=== PATIENT | female | born 1970 | race Caucasian/White ===

== ENCOUNTER 2019-12-29 05:50 | Emergency (ER) | payer OTHER, SELFPAY ==
--- NOTE | ~2019-12-29 | CT_ITS ---
EXAMINATION: CT abdomen pelvis w con DATE: 12/29/2019 07:10 INDICATION: Abdominal pain. History of pancreatitis. TECHNIQUE: Computed tomography (CT) of the abdomen and pelvis was performed with 100 cc Omnipaque 350 intravenous contrast. Automated exposure control and iterative reconstruction technique were employe d. Exam dose: 968.75 mGy-cm total exam DLP. COMPARISON: 10/13/2018 right upper quadrant abdominal ultrasound 10/14/2018 MRI abdomen FINDINGS: The lung bases are clear. Normal heart size. No pericardial or pleural effusion. The liver, gallbladder, bile ducts, pancreas, pancreatic duct, spleen and adrenal glands are unremark able. There is mild bilateral renal scarring and/or persistent lobation. No renal mass lesion or urin susie tract obstruction is evident. There is a small nonobstructing lower pole left renal calculus. Normal caliber of the abdominal aorta. No intraperitoneal or retroperitoneal or pelvic mass lesion or adenopathy or ascites. There is some fluid distended small bowel segments and scattered small bowel air-fluid levels, which may be due to adynamic ileus or enteritis. There are scattered diverticula of left and right colon; n o CT evidence of diverticulitis. No bowel obstruction, bowel wall thickening, pneumatosis or intraper itoneal free air is evident. There is a trace amount of air within the urinary bladder. Recommend clinical correlation to exclude cystitis. There is no urinary bladder wall thickening or pericystic fluid or inflammation. The uterus and adnexal areas are unremarkable. No pericystic inflammatory process is evident. Diffuse idiopathic skeletal hyperostosis of the thoracic spine. Moderate degenerative disc disease an d prominent spurring at L2-3. No suspicious osteolytic or osteoblastic lesions are noted. IMPRESSION: Nondilated fluid containing small bowel segments and occasional air-fluid levels, sugges ting mild adynamic ileus or enteritis Diverticulosis of the colon; no CT evidence of diverticulitis Reviewed, dictated and finalized at [facility] Reviewed, dictated and finalized at [facility]. IMPRESSION: Nondilated fluid containing small bowel segments and occasional ai r-fluid levels, suggesting mild adynamic ileus or enteritis Diverticulosis of the colon; no CT evidence of diverticulitis
[2019-12-29 05:51] VITALS: BP 189/98; PULSE 94; RESP 16; TEMP 36.6; O2SAT 100
--- NOTE | 2019-12-29 06:02 | ED.ABDPAIN ---
HPI - Abdominal Pain General Chief Complaint: Abdominal Pain <Savannah White MD - Last Filed: 12/29/19 07:52> Stated Complaint: abd pain <Savannah White MD - Last Filed: 12/29/19 07:52> Time Seen by Provider: 12/29/19 06:02 <Savannah White MD - Last Filed: 12/29/19 07:52> Source: patient <Savannah White MD - Last Filed: 12/29/19 07:52> Mode of arrival: wheelchair <Savannah White MD - Last Filed: 12/29/19 07:52> Limitations: no limitations <Savannah White MD - Last Filed: 12/29/19 07:52> History of Present Illness HPI narrative: Patient is a 49-year-old female with a history of diabetes, pancreatitis who presents for evaluation of upper abdominal pain. Patient reports a 2-month history of intermittent, severe, cramping upper abdominal pain. There is associated with nausea, vomiting. Patient denies fever, chills, intermittently she has had diarrhea. She denies flank pain. Patient states she is working with her physician Dr. Driver, to investigate possible ulcer, and has follow-up with Dr. Sanabria, gastroenterology in [place] for February. Patient states that none of the remedies they have tried including antacids have alleviated the pain. Patient reports mild abdominal bloating. She does have a history of an appendectomy. <Savannah White MD - Last Filed: 12/29/19 07:52> Related Data Home Medications: Home Medications Medication Instructions Recorded Confirmed diazepam 2.5 mg PO Q6H PRN 12/29/19 12/29/19 lovastatin 20 mg PO DAILY 12/29/19 12/29/19 pantoprazole 40 mg PO DAILY 12/29/19 12/29/19 <Savannah White MD - Last Filed: 12/29/19 07:52> Allergies/Adverse Reactions: Allergies Allergy/AdvReac Type Severity Reaction Status Date / Time No Known Allergies Allergy Verified 12/29/19 06:00 <Savannah White MD - Last Filed: 12/29/19 07:52> Review of Systems Review of Systems: Narrative: CONSTITUTIONAL: Denies fever, chills, or sweats. EYES: Denies visual changes, redness, or discharge. ENT: Denies rhinorrhea, congestion, sore throat, or otalgia. CARDIOVASCULAR: Denies chest pain, palpitations, or edema. RESPIRATORY: Denies cough or dyspnea. GASTROINTESTINAL: Reports abdominal pain, nausea and vomiting GENITOURINARY: Denies dysuria or hematuria. SKIN: Denies rash or itching. MUSCULOSKELETAL: Denies back pain, joint pain, or myalgia. NEUROLOGIC: Denies headache, numbness, or weakness. PS <Savannah White MD - Last Filed: 12/29/19 07:52> PMFSH Past Medical History Medical History: Medical History (Updated 12/29/19 @ 07:40 by Savannah White MD) Anxiety Diabetes Hyperlipidemia Hypertension Pancreatitis <Savannah White MD - Last Filed: 12/29/19 07:52> Social History Social History: Social History (Updated 12/29/19 @ 06:03 by Savannah White MD) Smoking status: Never smoker Alcohol intake: never Substance use: never Gender identity (if verbalized by the patient): Female <Savannah White MD - Last Filed: 12/29/19 07:52> Exam Narrative: Exam Narrative: GENERAL: Awake, alert, sitting on the side of the bed, laying on the bed with her elbows, uncomfortable appearing HEAD: Normocephalic, atraumatic. EYES: PERRLA and EOMI. ENT: Nares clear, no rhinorrhea or epistaxis. Mucous membranes moist. NECK: Supple. CHEST: No respiratory distress, breathing even and non labored HEART: Regular rate, sinus rhythm ABDOMEN:Non distended, tender to palpation in epigastrium and right upper quadrant with guarding, no rebound, nonrigid EXTREMITIES: Normal range of motion. No edema. SKIN: Warm, dry, no rash. NEURO:No focal deficits. Alert and oriented x3 <Savannah White MD - Last Filed: 12/29/19 07:52> Course Reevaluation(s) Reevaluation #1: I accepted care from Dr. White. Patient reports she is still have severe right upper abdominal pain radiating to her back. She is awaiting CT, and I will order m
[2019-12-29] MEDS: ONDANSETRON INJ 4 MG/2 ML VIAL IV PUSH (06:21)
[2019-12-29] MEDS: MORPHINE SULFATE 4 MG/ML INJ IV PUSH (06:21)
[2019-12-29] MEDS: SODIUM CHLORIDE 0.9% IV 1,000 ML 999 ML IV CONT (06:21)
[2019-12-29] MEDS: FAMOTIDINE 20 MG/2 ML VIAL IV PUSH (06:21)
[2019-12-29 06:26] LABS: Basophils Absolute Auto 0.1 K/mm3 (0.0-0.1); Basophils Percent Auto 1.5 % (0.2-1.2); Eosinophils Absolute Auto 0.3 K/mm3 (0-0.3); Eosinophils Percent Auto 3.6 % (0-4.4); Hemoglobin 13.8 g/dL (12.0-15.0); Immature Granulocyte Absolute 0.03 K/mm3 (0.00-0.031); Immature Granulocyte Percent A 0.3 % (0-0.5); Lymphocytes Absolute Auto 2.43 K/mm3 (0.9-3.2); Lymphocytes Percent Auto 28.2 % (18.3-44.2); Mean Corpuscular HGB Conc 33.7 g/dl (32-36); Mean Corpuscular Hemoglobin 28.3 pg (26-34); Mean Platelet Volume 10.4 fl (7.4-10.4); Monocytes Absolute Auto 0.8 K/mm3 (0.1-0.6); Monocytes Percent Auto 9.4 % (2.6-8.5); Neutrophils Absolute Auto 4.9 K/mm3 (1.3-6.7); Platelet Count Result 331 k/mm3 (150-375); Red Blood Count 4.88 M/mm3 (4.2-5.4); Red Cell Distribution Width 12.8 % (11.5-14.5); White Blood Count 8.6 K/mm3 (4.5-10.0)
[2019-12-29 06:40] LABS: Add Urine Microscopic? YES; Appearance Urine Clear (Clear); Bilirubin Urine Negative (Negative); Blood Urine Negative (Negative); Color Urine Yellow (Yellow); Glucose Urine UA Negative (Negative); Ketones Urine Negative (Negative); Leukocyte Esterase Ur Trace LEU/UL (Negative); Nitrate Urine Negative (Negative); Protein Urine Negative (Negative); RBC Urine 0-2 /hpf (0-2); Specific Grav Ur 1.023 (1.001-1.035); Squamous Epithelial Cell Urine Many /hpf (Few); Urobilinogen Urine Negative mg/dL (<2.0)
[2019-12-29 06:43] VITALS: BP 178/91; PULSE 86; RESP 20; O2SAT 100
[2019-12-29 06:46] LABS: Alanine Aminotransferase 16 U/L (4-35); Albumin Level 4.1 g/dL (3.5-5.1); Alkaline Phosphatase 76 U/L (38-126); Anion Gap 12.3 mmol/L (7-16); Aspartate Amino Transferase 26 U/L (14-36); Bilirubin,Total 0.4 mg/dL (0.2-1.3); Blood Urea Nitrogen 24 mg/dL (7-17); Calcium 9.2 mg/dL (8.4-10.2); Carbon Dioxide 27 mmol/L (22-30); Chloride 101 mmol/L (98-107); Estimated CRCL calculation 98 ml/min; Estimated Glomerular Filt Rate > 60; Glucose 280 mg/dL (65-105); Lipase 54 U/L (23-300); Potassium 4.3 mmol/L (3.4-5.0); Sodium 136 mmol/L (137-145)
[2019-12-29 07:28] VITALS: BP 177/90; PULSE 87; RESP 15; O2SAT 99
--- NOTE | 2019-12-29 08:12 | PC.NURSE ---
Pt states she is too woozy to drive home right now. Pt states that she has the only vehicle at home.
--- NOTE | 2019-12-29 08:37 | PC.NURSE ---
This RN went into pts room to see if she felt less woozy . Pt states yes, I feel like I can drive . This RN went over discharge paperwork with pt. No questions or concerns.
== END 2019-12-29 08:37 | disposition home or self-care (01) ==
PROVIDERS: Emergency Medicine; Emergency Provider General Practice; PCP Nurse Practitioner
DX: R10.11 Right upper quadrant pain (principal); E11.9 Type 2 diabetes mellitus without complications; E78.5 Hyperlipidemia, unspecified; I10 Essential (primary) hypertension; F41.9 Anxiety disorder, unspecified; K57.90 Diverticulosis of intestine, part unspecified, without perforation or abscess without bleeding; R93.3 Abnormal findings on diagnostic imaging of other parts of digestive tract
CPT/HCPCS: 36415; 74177; 80053; 81001; 83690; 85025; 96361; 96374; 96375; 99284; J1170; J2270; J2405; J7030; Q9967

== ENCOUNTER 2020-01-30 14:57 | Outpatient (CLI) | payer OTHER, SELFPAY ==
--- NOTE | 2020-01-30 | ECHO_ITS ---
Patient Info Name: Debbie Ziegler Age: 49 years : 1970 Gender: Female Ht: 62 in Wt: 193 lbs BSA: 2.00 m2 HR: 84 bpm BP: 176 / 96 mmHg Heart Rhythm: Sinus Rhythm Technical Quality: Good Exam Date: 01/30/2020 3:16 PM Exam Location: [facility] Patient Status: Outpatient Admit Date: 01/30/2020 Staff Ordering Physician: PHYSICIAN NOT ON STAFF, NONSTAFF Cashier Checker: Latasha Rinaldi RDCS Attending Provider: PHYSICIAN NOT ON STAFF, NONSTAFF Exam Type: CA echo doppler color flow Study Info Indications - murmur Complete two-dimensional, color flow and Doppler transthoracic echocardiogram is performed. Summary 1. Complete two-dimensional, color flow and Doppler transthoracic echocardiogram is performed. 2. The left ventricle is of normal size with moderate to severe concentric left ventricular hypertrophy. There is good systolic function of all segments with no segmental wall motion abnormalities and with a calculated ejection fraction of 75%. The global longitudinal strain is-14% suggesting early systolic dysfunction. Grade 2 diastolic dysfunction is present. 3. Left atrial chamber dimension is moderately enlarged. 4. There is mild mitral valve regurgitation. 5. Moderate pulmonary hypertension, estimated pulmonary arterial systolic pressure is 55 mmHg. 6. Normal sinus rhythm. Left Ventricle Left ventricular chamber dimension is normal. Left ventricular systolic function is normal, estimated at >70%. There is moderately increased left ventricular wall thickness. Left ventricular septal wall motion is normal. The left ventricular diastolic function is grade II diastolic dysfunction. Global longitudinal strain is moderately elevated at 14 %. Right Ventricle Right ventricular chamber dimension is normal. Right ventricular systolic function is normal. Left Atria Left atrial chamber dimension is moderately enlarged. Right Atria Right atrial chamber dimension is normal. Aortic Valve The aortic valve is trileaflet. There is no aortic valve sclerosis. There is no aortic valve stenosis. There is no aortic valve regurgitation. Pulmonic Valve The pulmonic valve is normal. There is no pulmonic valve stenosis. There is no pulmonic regurgitation. Mitral Valve The mitral valve has thickened leaflets. There is no mitral valve stenosis. There is mild mitral valve regurgitation. Tricuspid Valve The tricuspid valve leaflets are normal. There is no significant tricuspid valve stenosis. There is trace tricuspid valve regurgitation. Moderate pulmonary hypertension, estimated pulmonary arterial systolic pressure is 55 mmHg. Pericardium/Pleural The pericardium appears normal. There is no pericardial effusion. Inferior Vena Cava Normal inferior vena cava with >50% collapse upon inspiration consistent with Empty right atrial pressure, 10 mmHg. Aorta The aortic root size at the sinus of Valsalva is normal. The prox ascending aorta size is normal. Left Ventricular Outflow Tract Name Value Normal LVOT 2D LVOT Diameter 2.0 cm LVOT Doppler LVOT Peak Gradient
== END 2020-01-30 14:58 | disposition home or self-care (01) ==
LOC: ANHCARD 15:01
PROVIDERS: PCP Nurse Practitioner
DX: R01.1 Cardiac murmur, unspecified (principal); I08.3 Combined rheumatic disorders of mitral, aortic and tricuspid valves
CPT/HCPCS: 93306

== ENCOUNTER 2020-01-31 11:25 | Outpatient (CLI) | payer OTHER, SELFPAY ==
--- NOTE | ~2020-01-31 | US_ITS ---
EXAMINATION: US retroperitoneal duplex ltd EXAM DATE: 01/31/2020 12:27 INDICATION: Essential hypertension. TECHNIQUE: Multiple grayscale and Doppler images of the kidneys and renal arteries were obtained. T here is no prior study for comparison. FINDINGS: The aorta peak systolic velocity is 86 cm/s. The right renal artery peak systolic velocity is 85 cm/s in the proximal segment, 127 cm/s in the mid segment, and 84 cm/s in the distal segment. The left re nal artery peak systolic velocity is 69 cm/s in the proximal segment, 92 cm/s in the mid segment, and 65 cm/s in the distal segment. IMPRESSION: 1. Renal artery Doppler velocities within normal limits. Reviewed, dictated and finalized at [facility].
--- NOTE | ~2020-01-31 | XR_ITS ---
XR thoracic spine 3V 01/31/2020 11:58 Indication: Mid back pain for 3 months Procedure: 3 views thoracic spine Comparison: No prior studies for comparison. Findings: There is mild thoracic spondylosis with dextrocurvature of the upper thoracic spine. Verteb ral body heights are maintained. No paraspinal soft tissue abnormality. Surrounding osseous structure s within normal limits. Pedicles intact. Impression: 1: Mild thoracic spondylosis. Reviewed, dictated and finalized at [facility]. Impression: 1: Mild thoracic spondylosis.
== END 2020-01-31 11:26 | disposition home or self-care (01) ==
PROVIDERS: PCP Nurse Practitioner; Visit Provider Nurse Practitioner
DX: R01.1 Cardiac murmur, unspecified (principal); M47.894 Other spondylosis, thoracic region
CPT/HCPCS: 72072; 93976

== ENCOUNTER 2020-03-28 03:53 | Observation (INO) | payer OTHER, SELFPAY ==
[2020-03-28] VITALS (34 sets, daily range): BP systolic 85–163; BP diastolic 51–103; PULSE 81–130; RESP 13–22; TEMP 35.8–37.1; O2SAT 97–100; BMI 31.0
--- NOTE | ~2020-03-28 | CT_ITS ---
EXAMINATION: CT brain wo con DATE: 03/28/2020 11:31 INDICATION: Altered mental status. Seizure. TECHNIQUE: Computed tomography (CT) of the head was performed without intravenous contrast. Sagittal and coronal reconstructions were performed. The mA was adjusted according to patient size. Iterative reconstruction technique was employed. The dose-length product was 605.33 mGy-cm. COMPARISON: None FINDINGS: No acute intracranial hemorrhage, acute infarction or abnormal extra axial fluid collection. 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 Ventricles are normal and symmetri c. No mass/mass effect. The orbits, paranasal sinuses and mastoid air cells are normal. IMPRESSION: 1. No acute intracranial process. 2. 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 Reviewed, dictated and finalized at location A.
--- NOTE | ~2020-03-28 | CT_ITS ---
EXAMINATION: CT abdomen pelvis w con DATE: 03/28/2020 05:27 INDICATION: Abdominal pain TECHNIQUE: Computed tomography (CT) of the abdomen and pelvis was performed with 100 mL Omnipaque-350 intravenous contrast. Automated exposure control and iterative reconstruction technique were employe d. The dose-length product was 819.34 mGy-cm. COMPARISON: 12/29/2019 FINDINGS: Lung bases are clear. Heart size is normal. Very small pericardial effusion. Liver, gallbladder, sple en, pancreas, bilateral adrenal glands and right kidney are normal. Mild left renal atrophy with smal l regions of cortical scarring which could represent sequela of prior infarct or infection. 2 mm nono bstructing stone at a lower pole calyx of the left kidney. No hydronephrosis. Mild scattered colonic diverticulosis without adjacent inflammatory change to suggest diverticulitis. There is hypoattenuati on at the proximal most descending colon near the splenic flexure hypoattenuation appearing extend in to the lumen of the descending colon. This is in a similar location to the site of the initial bowel activity seen on subsequent GI bleeding study consistent with a diverticular bleed. No bowel obstruct ion. Bladder, anteverted uterus and bilateral adnexa are unremarkable. No free intraperitoneal gas or fluid. No pathologically enlarged abdominal or pelvic lymphadenopathy. Mild scattered degenerative s keletal changes. IMPRESSION: 1. Likely intraluminal extravasation of contrast arising from a diverticulum at the proximal most julia cending colon which coincides with location of initial bowel activity on subsequent nuclear medicine gastrointestinal bleed study. Reviewed, dictated and finalized at location A. IMPRESSION: 1. Likely intraluminal extravasation of contrast arising from a diverticulum at the proximal most descending colon which coincides with location of initial donna wel activity on subsequent nuclear medicine gastrointestinal bleed study.
--- NOTE | ~2020-03-28 | NM_ITS ---
EXAMINATION: NM GI bleeding DATE: 03/28/2020 08:28 INDICATION: Gastrointestinal bleed TECHNIQUE: 25.8 mCi Tc 99m in vitro labeled red cells administered intravenously. Scintigraphic imag es of the abdomen were obtained through 32 minutes. Study was halted at this time and patient returne d to the floor due to hypotension. FINDINGS: Active bleed which appears to originate near the splenic flexure which is evident on the se cond minute of imaging with progressive increase in the amount of activity throughout the more distal colon arriving at the rectum by 17 minutes with significant continued accumulation of the remaining 14 minutes of imaging. IMPRESSION: 1. Active gastrointestinal bleed which appears to originate at the splenic flexure of the colon. Reviewed, dictated and finalized at location A. IMPRESSION: 1. Active gastrointestinal bleed which appears to originate at the splenic fle xure of the colon.
--- NOTE | ~2020-03-28 | XR_ITS ---
EXAMINATION: XR chest 1V DATE: 03/28/2020 11:29 INDICATION: Cardiomegaly. Syncope/seizure. TECHNIQUE: AP view of the chest was obtained. COMPARISON: CT abdomen and pelvis dated 12/29/2019 FINDINGS: The lungs are clear with no focal airspace opacities, pulmonary edema, pleural effusion or pneumothor ax. The cardiomediastinal silhouette is normal with normal heart size. Visualized bones and soft tiss ues are unremarkable. IMPRESSION: 1. Normal chest radiograph. Reviewed, dictated and finalized at location A. IMPRESSION: 1. Normal chest radiograph.
[2020-03-28] MEDS: SODIUM CHLORIDE 0.9% IV 1,000 ML 999 ML IV CONT ×2 (04:22→08:33)
[2020-03-28 04:24] LABS: Basophils Absolute Auto 0.1 K/mm3 (0.0-0.1); Eosinophils Absolute Auto 0.3 K/mm3 (0-0.3); Eosinophils Percent Auto 3.1 % (0-4.4); Hematocrit 38.7 % (37.0-47.0); Hemoglobin 13.1 g/dL (12.0-15.0); Immature Granulocyte Absolute 0.02 K/mm3 (0.00-0.031); Immature Granulocyte Percent A 0.2 % (0-0.5); Lymphocytes Absolute Auto 2.13 K/mm3 (0.9-3.2); Lymphocytes Percent Auto 24.5 % (18.3-44.2); Mean Corpuscular HGB Conc 33.9 g/dl (32-36); Mean Corpuscular Hemoglobin 29.4 pg (26-34); Mean Platelet Volume 10.2 fl (7.4-10.4); Monocytes Absolute Auto 0.7 K/mm3 (0.1-0.6); Monocytes Percent Auto 8.2 % (2.6-8.5); Neutrophils Absolute Auto 5.5 K/mm3 (1.3-6.7); Platelet Count Result 320 k/mm3 (150-375); Red Blood Count 4.45 M/mm3 (4.2-5.4); Red Cell Distribution Width 12.3 % (11.5-14.5); White Blood Count 8.7 K/mm3 (4.5-10.0)
[2020-03-28 04:30] LABS: Prothrombin Time 13.1 Seconds (11.1-14.7)
[2020-03-28 04:31] LABS: Partial Thromboplastin Time 27.2 SECONDS (22.3-36.8)
[2020-03-28 04:33] LABS: Alanine Aminotransferase 15 U/L (4-35); Albumin Level 4.2 g/dL (3.5-5.1); Alkaline Phosphatase 59 U/L (38-126); Anion Gap 9 mmol/L (8-16); Aspartate Amino Transferase 19 U/L (14-36); Bilirubin,Total 0.7 mg/dL (0.2-1.3); Blood Urea Nitrogen 21 mg/dL (7-17); Calcium 9.7 mg/dL (8.4-10.2); Carbon Dioxide 29 mmol/L (22-30); Chloride 100 mmol/L (98-107); Estimated CRCL calculation 58 ml/min; Estimated Glomerular Filt Rate 58; Glucose 217 mg/dL (65-105); Potassium 3.7 mmol/L (3.4-5.0); Sodium 138 mmol/L (137-145)
--- NOTE | 2020-03-28 04:48 | ED.GENADULT ---
HPI - General Adult General Chief complaint: GI Bleed Stated complaint: blood in stool Time Seen by Provider: 03/28/20 03:54 Source: RN notes reviewed History of Present Illness HPI narrative: Patient presents to emergency department from home for GI bleed. Patient states that approximately 3:30 AM this morning she had a bowel movement that had dark red blood with clots as well as some bright red blood. She states since then she is had 2 further bowel movements. States is associated with lower abdominal cramping. Denies any fevers or chills nausea vomiting or any other symptoms. The patient did have a colonoscopy by Dr. Sanabria at [facility] 2 weeks ago for evaluation of constipation. She states nothing was found at that time and no biopsies were taken. She denies any use of blood thinners Related Data Home Medications Medication Instructions Recorded Confirmed diazepam 2.5 mg PO Q6H PRN 12/29/19 12/29/19 lovastatin 20 mg PO DAILY 12/29/19 12/29/19 pantoprazole 40 mg PO DAILY 12/29/19 12/29/19 Allergies Allergy/AdvReac Type Severity Reaction Status Date / Time insulin isophane (NPH) Allergy Swelling Verified 03/28/20 04:06 [From Novolin N NPH U-100 Insulin] metformin AdvReac Vomiting Verified 03/28/20 04:06 Review of Systems Review of Systems: Narrative: Gen.: Denies fevers or chills Eyes: Denies eye pain or visual changENT: Denies congestion Respiratory: Denies shortness of breath or cough CV: Denies chest pain or palpitations GI: See HPI denies burning, urgency, frequency or hematuria Musculoskeletal: Denies back pain or muscle pain Neuro: Denies numbness, tingling, weakness or focal weakness Skin: Denies rash Except as documented, all other systems reviewed and negative PMF Past Medical History Medical History Anxiety Diabetes Hyperlipidemia Hypertension Pancreatitis Social History Social History Smoking status: Never smoker Alcohol intake: never Substance use: never Gender identity (if verbalized by the patient): Female Exam Narrative: Exam Narrative: APPEARANCE: No acute distress, nontoxic, resting in bed HEENT: Normocephalic, atraumatic, OMM RESPIRATORY: No respiratory distress, clear to auscultation bilaterally with no rhonchi wheezing or rales CARDIOVASCULAR: RRR s murmur ABDOMINAL: Soft, nondistended, tender palpation right lower quadrant, no tenderness right upper quadrant, left upper quadrant left lower quadrant, no rebound or guarding Rectal: No hemorrhoids or fissures, maroon blood in rectal vault Hemoccult positive MUSCULOSKELETAl: Moves all extremities. No clubbing, cyanosis or edema. NEURO: Awake and alert. Following commands, speech normal, no focal deficits SKIN:: Warm, dry. Normal Color PSYCHIATRIC: Normal affect/mood Course Course Emergency Course: Discussed with Dr. Calvillo presentation work-up. Discussed CT scan. At this time request a nuclear medicine GI bleed study be obtained agrees with consult. Recommends no antibiotics at this time Discussed with Dr. Wilson presentation work-up. Agrees with admission at this time Discussed with patient and family results of workup and diagnosis. Discussed need for admission. Patient and family understand and agree to current treatment plan Vital Signs Vital signs: Vital Signs Temperature 97.1 F L 03/28/20 03:59 Pulse Rate 125 H 03/28/20 03:59 Respiratory Rate 16 03/28/20 03:59 Blood Pressure 163/103 H 03/28/20 03:59 Pulse Oximetry 100 03/28/20 03:59 Temperature 97.1 F L 03/28/20 03:59 Pulse Rate 88 03/28/20 05:36 Respiratory Rate 18 03/28/20 05:36 Blood Pressure 125/64 03/28/20 05:36 Pulse Oximetry 100 03/28/20 05:36 Medical Decision Making Vital Signs Vital Signs: Vital Signs Temperature 97.1 F L 03/28/20 03:59 Pulse Rate 125 H 03/28/20 03:59
--- NOTE | 2020-03-28 05:08 | PC.NURSE ---
Patient lactic being drawn at this time.
--- NOTE | 2020-03-28 05:10 | PC.NURSE ---
Patient being taken to CT.
--- NOTE | 2020-03-28 05:14 | PC.NURSE ---
This nurse called to CT by diesel service technician. Patient stated she needed to have a BM, and when she sat on the toilet patient became clammy, diaphoretic and lightheaded. Patient instructed to remain seated and this RN and another RN assisted patient off the toilet and on to the stretcher. Patient stated she felt lightheaded and became teary. Patient instructed on breathing techniques and patient calmed down. Patient then transferred to the CT table and tolerated the procedure well. Patient then brought back to her room and ERP notified.
[2020-03-28 05:40] LABS: Lactic Acid Reflex 1.2 mmol/L (0.7-2.1)
--- NOTE | 2020-03-28 06:03 | PC.NURSE ---
Patient signed consent to release her records of her colonoscopy at [facility] in [facility].
--- NOTE | 2020-03-28 06:19 | PC.NURSE ---
Patient to be transferred to the floor after her nuclear med scan.
--- NOTE | 2020-03-28 07:56 | PC.NURSE ---
Patient was incontinent of stool/blood in [facility], brought back to room 13 and karine care provided. Patient then states I don't feel good, im dizzy and my hands are tingling. Patient then states lets just get this test over with. Patient transferred to [facility] at this time.
--- NOTE | 2020-03-28 08:26 | PC.NURSE ---
Called to nuclear med patient is difficult to arouse. Taken back to room 13 in ED r/t bp of 85/51.
--- NOTE | 2020-03-28 08:46 | PC.NURSE ---
Talked with [facility] hospitalist who is taking care of patient. I told her about the patient going over to [facility] and her pressures being 80/40s. I asked if she could go to IMU instead of a medical floor due to her condition. She agreed and gave me verbal orders for the patient to go to IMU and to redraw an H&H. Orders read back at this time.
[2020-03-28 08:48] LABS: Hemoglobin 9.1 g/dL (12.0-15.0)
--- NOTE | 2020-03-28 08:55 | PC.NURSE ---
Spoke with Esperanza ([phone]) friend and updated patients condition. Also attempted to call patients Kirby at ([phone]) left message on answering machine.
--- NOTE | 2020-03-28 09:08 | PC.NURSE ---
Dr. Calvillo came down to evaluate patient. Dr. Calvillo told this RN that the patient needs a OR consult. [facility] Hospitalist called at this time to let her know. She stated I will put in orders for that .
--- NOTE | 2020-03-28 09:26 | WPDGICN ---
Assessment and Plan Assessment and plan (1) LGI bleed: Code(s): K92.2 - Gastrointestinal hemorrhage, unspecified Status: Acute Assessment and Plan: Patient with acute lower GI bleeding. Diverticulosis evident on CT scan. New med scan suggest bleeding from the splenic flexure. Patient had a recent colonoscopy reported as unremarkable, performed at [facility] 2 weeks ago. Patient previously it had difficulties with constipation improved only with taking MiraLax. Combination of x-ray findings in history suggest diverticular bleeding in this area. For this reason patient will be transfused to maintain adequate hemoglobin surgery will be consulted in case urgent surgery and required. ( Otherwise elective colonoscopy to exclude any additional new lesions over the last 2 weeks which has felt somewhat unlikely.) Have discussed the case with both primary care service in surgical service will follow with both them. Proceed as described. GI Consult Note Consult date/time: 03/28/20 09:26 HPI: Debbie Ziegler is a 49 year old female seen in evaluation at the request of the emergency room. Patient in usual state of health till 3:00 a.m. in the morning when she began to pass a massive amount of bright red blood along with clots. She denies any associated abdominal pain. She has had some cramping associated with her bowel movements. She denies a fever. She does report having been constipated underwent a colonoscopy at [facility] 2 weeks ago reported to be unremarkable. In the emergency room a CT scan reveals diverticulosis. In a blush suggesting bleeding from the splenic flexure area. A nuclear medicine scan was performed early this morning consistent with bleeding from the splenic flexure. Since presentation to the ER hemoglobin is decline from 13-9.1. Patient's past history is significant for diabetes. Review of Systems Review of Systems: All systems reviewed & are unremarkable except as noted in HPI and below PMFSH Past Medical History Medical History Anxiety Diabetes Hyperlipidemia Hypertension Pancreatitis Social History Social History Smoking status: Never smoker Alcohol intake: never Substance use: never Gender identity (if verbalized by the patient): Female Meds Home Medications and Allergies Home Medications Medication Instructions Recorded Confirmed Type diazepam 2.5 mg PO Q6H PRN 12/29/19 12/29/19 History dicyclomine 10 mg PO BID 5 Days #10 cap 12/29/19 Rx lovastatin 20 mg PO DAILY 12/29/19 12/29/19 History ondansetron HCl [Zofran] 4 mg PO Q8H #14 tablet 12/29/19 Rx oxycodone-acetaminophen 1 tablet PO Q6H PRN #14 tablet 12/29/19 Rx pantoprazole 40 mg PO DAILY 12/29/19 12/29/19 History Allergies Allergy/AdvReac Type Severity Reaction Status Date / Time insulin isophane (NPH) Allergy Swelling Verified 03/28/20 04:06 [From Novolin N NPH U-100 Insulin] metformin AdvReac Vomiting Verified 03/28/20 04:06 Vital Signs Vital Signs - 24 hr 03/28/20 03:59 03/28/20 04:38 03/28/20 05:36 Temperature 97.1 F L Pulse Rate 125 H 100 88 Respiratory Rate 16 20 18 Blood Pressure 163/103 H 161/87 H 125/64 Pulse Oximetry 100 100 100 03/28/20 06:39 03/28/20 06:43 03/28/20 06:46 Temperature 97.9 F Pulse Rate 96 95 95 Respiratory Rate 16 17 18 Blood Pressure 94/57 L 94/57 L 108/65 Pulse Oximetry 100 100 100 03/28/20 07:14 03/28/20 08:27 03/28/20 08:37 Temperature Pulse Rate 105 H 94 96 Respiratory Rate 22 H 20 21 H Blood Pressure 108/65 93/57 L 122/83 Pulse Oximetry 98 99 100 03/28/20 08:47 Temperature Pulse Rate 93 Respiratory Rate 21 H Blood Pressure 155/76 H Pulse Oximetry 100 Exam Narrative: Exam Narrative: Physical exam reveals patient to be alert. She is somewhat pale in appearance. HEENT
[2020-03-28] MEDS: SODIUM CHLORIDE 0.9% IV 250 ML 30 ML IV CONT (10:00)
[2020-03-28] MEDS: PANTOPRAZOLE SODIUM IV 40 MG VIAL IV PUSH ×2 (10:07→20:18)
[2020-03-28] MEDS: LACTATED RINGERS 1,000 ML 125 ML IV CONT (10:07)
[2020-03-28 10:08] LABS: Hematocrit 29.1 % (37.0-47.0); Hemoglobin 9.5 g/dL (12.0-15.0)
--- NOTE | 2020-03-28 10:29 | PM.IMHP ---
H&P: HPI History of Present Illness Date/Time: 03/28/20 10:29 Chief complaint: GI bleed Narrative: Date visit 944 Debbie Ziegler is a 49 year old female type 2 diabetes and hypertension who at 3am this morning awoke with lower abdominal cramping and bright blood per rectum with clots. With symptoms persisting she came to the ER and CT scan showed diverticular disease followed by nuclear med scan showing bleeding from splenic flexure. She became hypotensive and lethargic early this a.m. and was transferred IMU where with fluid resuscitation and Trendelenburg her pressure rebounded to 120s systolic. She had a colonoscopy approximately 2 weeks ago which was reported as benign other than some diverticular disease. Says since November of this year she has had increasing postprandial abdominal pain and constipation with a 10 lb weight loss. Had EGD and colonoscopy with no significant findings. No previous history of GI bleed. Does not smoke, drink alcohol, or take any anti-inflammatory medication Review of Systems Review of Systems: Narrative: constitutional appetite has been fair but as stated she has lost about 10 lb over last several months Eye no double vision scotoma mouth no pharyngitis laryngitis pulmonary no shortness breath wheezing or asthma or cough CV history of the hypertensive cardiomegaly and history of heart murmur GI as per present illness no dysuria no hematuria muscle skeletal no particular joint discomfort integument no skin breakdown rashes neuropsych no previous seizure syncope or headaches psych affect appears appropriate [facility] Past Medical History Medical History (Updated 03/28/20 @ 10:51 by Eleuterio Veliz MD) Anxiety Diabetes mellitus type 2 in obese Hyperlipidemia Hypertension Pancreatitis Surgical History Surgical History (Updated 03/28/20 @ 10:39 by Eleuterio Veliz MD) History of herniorrhaphy Family History Family History (Updated 03/28/20 @ 10:40 by Eleuterio Veliz MD) Mother Diabetes mellitus Renal failure Social History Social History (Updated 03/28/20 @ 10:41 by Eleuterio Veliz MD) Social History: lives with her and 15-year-old son. Smoking status: Never smoker Alcohol intake: never Substance use: never Gender identity (if verbalized by the patient): Female Meds Home Medications and Allergies Home Medications Medication Instructions Recorded Confirmed Type diazepam 2.5 mg PO Q6H PRN 12/29/19 12/29/19 History dicyclomine 10 mg PO BID 5 Days #10 cap 12/29/19 Rx lovastatin 20 mg PO DAILY 12/29/19 12/29/19 History ondansetron HCl [Zofran] 4 mg PO Q8H #14 tablet 12/29/19 Rx oxycodone-acetaminophen 1 tablet PO Q6H PRN #14 tablet 12/29/19 Rx pantoprazole 40 mg PO DAILY 12/29/19 12/29/19 History Allergies Allergy/AdvReac Type Severity Reaction Status Date / Time insulin isophane (NPH) Allergy Swelling Verified 03/28/20 04:06 [From Novolin N NPH U-100 Insulin] metformin AdvReac Vomiting Verified 03/28/20 04:06 Vital Signs Vital Signs - 24 hr 03/28/20 03:59 03/28/20 04:38 03/28/20 05:36 Temperature 36.2 C L Pulse Rate 125 H 100 88 Respiratory Rate 16 20 18 Blood Pressure 163/103 H 161/87 H 125/64 Pulse Oximetry 100 100 100 03/28/20 06:39 03/28/20 06:43 03/28/20 06:46 Temperature 36.6 C Pulse Rate 96 95 95 Respiratory Rate 16 17 18 Blood Pressure 94/57 L 94/57 L 108/65 Pulse Oximetry 100 100 100 03/28/20 07:14 03/28/20 08:27 03/28/20 08:37 Temperature Pulse Rate 105 H 94 96 Respiratory Rate 22 H 20 21 H Blood Pressure 108/65 93/57 L 122/83 Pulse Oximetry 98 99 100 03/28/20 08:47 03/28/20 09:15 03/28/20 10:21 Temperature 36.6 C Pulse Rate 93 92 106 H Respiratory Rate 21 H 18 16 Blood Pressure 155/76 H 92/62 L 123/60 Pulse Oximetry 100 99 98 03/28/20 10:24 Temperature 36.5 C Pulse Rate 107 H Respiratory Rate Blood Pressure 122/84 Pulse Ox
--- NOTE | 2020-03-28 10:42 | PC.NURSE ---
This patient, Debbie Ziegler, was admitted to IMU Room 212-01. Patient/family oriented to hospital policies and general routines including ID bracelet, bed and alarms, visiting hours, pain management, procedures, bathroom and other care routines, personal items, smoking policy, room service/diet, and visiting hours. Information on how to activate the Rapid Response Team has been discussed. Patient/Family are encouraged to report perceived risks to care and to ask questions if they do not understand what they are told or what they should do.
[2020-03-28 11:52] LABS: Glucose Point of Care 267 (65-105)
--- NOTE | 2020-03-28 13:14 | PM.CNGS ---
Assessment and Plan Assessment and plan (1) Diverticulosis large intestine w/o perforation or abscess w/bleeding: Onset Date: ~03/28/20 Code(s): K57.31 - Diverticulosis of large intestine without perforation or abscess with bleeding Status: Acute Assessment and Plan: General Surgery will stand by. Most the time these bleeds will stop. Agree with blood transfusion of 2 units now and continue Q 6 hour H&H checks. Will follow with you. Will discuss with the patient further if necessary the possibility of hand assisted laparoscopic left colon resection should the bleeding continue. (2) LGI bleed: Onset Date: ~03/28/20 Code(s): K92.2 - Gastrointestinal hemorrhage, unspecified Status: Acute Assessment and Plan: General Surgery will stand by. Most the time these bleeds will stop. Agree with blood transfusion of 2 units now and continue Q 6 hour H&H checks. Will follow with you. Will discuss with the patient further if necessary the possibility of hand assisted laparoscopic left colon resection should the bleeding continue. (3) Acute blood loss anemia: Onset Date: ~03/28/20 Code(s): D62 - Acute posthemorrhagic anemia Status: Acute Assessment and Plan: We believe this is related to the lower GI bleed. Patient is receiving 2 units of blood. Will continue to monitor with q.6 hours H&Hs. (4) Diabetes mellitus type 2 in obese: Onset Date: Unknown Code(s): E11.69 - Type 2 diabetes mellitus with other specified complication; E66.9 - Obesity, unspecified Status: Acute Assessment and Plan: As per primary service. Patient will receive subcu insulin until the able to resume a diet. (5) Hypertension: Onset Date: Unknown Code(s): I10 - Essential (primary) hypertension Status: Acute Assessment and Plan: As per primary service. Patient will resume blood pressure medications when her diet is restarted. Was slightly hypotensive this morning so will hold all antihypertensives at this time. (6) Obesity (BMI 30.0-34.9): Onset Date: Unknown Code(s): E66.9 - Obesity, unspecified Status: Acute Assessment and Plan: Eventually will discuss weight reduction diet with patient. (7) Irritable bowel syndrome: Onset Date: ~11/2019 Code(s): K58.9 - Irritable bowel syndrome without diarrhea Status: Acute Assessment and Plan: Since in the past no definite GI problem could be identified the patient has been tried on a medication for it oval bowel syndrome recently. History of Present Illness Consult details Consult date: 03/28/20 Reason for consult: abdominal pain Requesting physician: Jostin Calvillo MD Narrative: Debbie Ziegler is a 49 year old white female with known type 2 diabetes and hypertension who at 3am this morning awoke with lower abdominal cramping and bright blood per rectum with clots. She states that she had at least 2 episodes of passing bloody stool prior to having her son drive her to the emergency room here at [facility]. With symptoms persisting she came to the ER and a CT scan showed diverticular disease with a possible blush of contrast near the splenic flexure area of the large bowel. This test was followed by a nuclear med scan showing bleeding from the LUQ of the abd.,possibly the splenic flexure [place] radionucleotide extending down the left colon toward the rectum in the next 14 minutes of the study. See study below under results. She became hypotensive and lethargic early this a.m. in the ED and was transferred IMU where with fluid resuscitation and Trendelenburg her pressure rebounded to 120s systolic. She had a colonoscopy and an EGD approximately 2 weeks ago which was reported as benign other than some diverticular disease. I reconfirmed this with the patient's designated visitor who was in the room when I interviewed the patient today. Patient jem
[2020-03-28] MEDS: TUBING, BLOOD PLUM PUMP TUBING 1 EACH XX (16:13)
[2020-03-28 16:50] LABS: Hematocrit 29.7 % (37.0-47.0); Hemoglobin 10.3 g/dL (12.0-15.0)
[2020-03-28 16:55] LABS: Glucose Point of Care 185 (65-105)
[2020-03-28] MEDS: SODIUM CHLORIDE 0.9% IV 1,000 ML 125 ML IV CONT (17:11)
[2020-03-28] MEDS: diazePAM (*CRX) 5 MG TABLET PO ×2 (18:23→23:51)
[2020-03-28] MEDS: GABAPENTIN 100 MG CAPSULE PO (18:24)
[2020-03-28] MEDS: HYDROcodone/acetaminophen (*CRX) 5-325 MG TABLET 1 TAB PO (20:18)
[2020-03-28] MEDS: METOPROLOL TARTRATE 50 MG TAB PO (20:18)
[2020-03-28 20:25] LABS: Glucose Point of Care 262 (65-105)
[2020-03-28 20:42] LABS: Add Urine Microscopic? YES; Appearance Urine Cloudy (Clear); Bacteria Urine Trace /hpf; Bilirubin Urine Negative (Negative); Blood Urine 2+ (Negative); Color Urine Yellow (Yellow); Glucose Urine UA 1+ mg/dL (Negative); Ketones Urine Trace mg/dL (Negative); Leukocyte Esterase Ur 3+ LEU/UL (Negative); Mucus Urine Rare /lpf; Nitrate Urine Negative (Negative); Protein Urine Negative (Negative); Specific Grav Ur 1.038 (1.001-1.035); Squamous Epithelial Cell Urine Many /hpf (Few); Urobilinogen Urine Negative mg/dL (<2.0); WBC Urine 31-50 /hpf
[2020-03-28] MEDS: ONDANSETRON INJ 4 MG/2 ML VIAL IV PUSH (20:48)
[2020-03-28 22:40] LABS: Hematocrit 27.9 % (37.0-47.0); Hemoglobin 9.4 g/dL (12.0-15.0)
[2020-03-28 23:50] LABS: Glucose Point of Care 228 (65-105)
[2020-03-29] VITALS (10 sets, daily range): BP systolic 144–169; BP diastolic 74–92; PULSE 75–91; RESP 14–22; TEMP 35.7–36.7; O2SAT 100
[2020-03-29] MEDS: SODIUM CHLORIDE 0.9% IV 1,000 ML 125 ML IV CONT ×3 (01:58→22:16)
[2020-03-29] MEDS: ACETAMINOPHEN 325 MG TABLET 650 MG PO ×2 (02:55→08:43)
[2020-03-29 04:40] LABS: Basophils Absolute Auto 0.1 K/mm3 (0.0-0.1); Basophils Percent Auto 0.9 % (0.2-1.2); Eosinophils Absolute Auto 0.2 K/mm3 (0-0.3); Eosinophils Percent Auto 2.3 % (0-4.4); Hematocrit 26.9 % (37.0-47.0); Hemoglobin 9.3 g/dL (12.0-15.0); Immature Granulocyte Absolute 0.03 K/mm3 (0.00-0.031); Immature Granulocyte Percent A 0.4 % (0-0.5); Lymphocytes Absolute Auto 2.36 K/mm3 (0.9-3.2); Lymphocytes Percent Auto 30.6 % (18.3-44.2); Mean Corpuscular HGB Conc 34.6 g/dl (32-36); Mean Corpuscular Hemoglobin 29.2 pg (26-34); Mean Corpuscular Volume 84.3 fl (80-100); Mean Platelet Volume 10.5 fl (7.4-10.4); Monocytes Absolute Auto 0.6 K/mm3 (0.1-0.6); Monocytes Percent Auto 7.9 % (2.6-8.5); Neutrophils Absolute Auto 4.5 K/mm3 (1.3-6.7); Neutrophils Percent Auto 57.9 % (45.5-73.1); Platelet Count Result 183 k/mm3 (150-375); Red Blood Count 3.19 M/mm3 (4.2-5.4); Red Cell Distribution Width 12.7 % (11.5-14.5); White Blood Count 7.7 K/mm3 (4.5-10.0)
[2020-03-29 04:54] LABS: Hemoglobin A1C 6.5 % (<5.7)
[2020-03-29 05:23] LABS: Anion Gap 3 mmol/L (8-16); Blood Urea Nitrogen 13 mg/dL (7-17); Calcium 7.8 mg/dL (8.4-10.2); Carbon Dioxide 25 mmol/L (22-30); Chloride 110 mmol/L (98-107); Estimated CRCL calculation 90 ml/min; Estimated Glomerular Filt Rate > 60; Glucose 208 mg/dL (65-105); Magnesium 1.7 mg/dL (1.6-2.3); Potassium 3.7 mmol/L (3.4-5.0); Sodium 138 mmol/L (137-145)
[2020-03-29 05:36] LABS: Glucose Point of Care 205 (65-105)
[2020-03-29] MEDS: GABAPENTIN 100 MG CAPSULE PO ×3 (08:43→17:51)
[2020-03-29] MEDS: METOPROLOL TARTRATE 50 MG TAB PO ×2 (08:43→21:36)
[2020-03-29] MEDS: PANTOPRAZOLE SODIUM IV 40 MG VIAL IV PUSH ×2 (08:43→21:36)
[2020-03-29] MEDS: diazePAM (*CRX) 5 MG TABLET PO ×2 (08:44→17:59)
[2020-03-29] MEDS: INSULIN ASPART (*BKC) 100 UNITS/ML SUB-Q ×3 (09:03→22:34)
--- NOTE | 2020-03-29 09:44 | PM.PNGS ---
Progress Note: A&P Assessment and Plan (1) Diverticulosis large intestine w/o perforation or abscess w/bleeding: Onset Date: ~03/28/20 Code(s): K57.31 - Diverticulosis of large intestine without perforation or abscess with bleeding Status: Acute Assessment and Plan: Bleeding appears to have stopped. Would recommend doing 1 more q.6 hours H&H and if everything seems to be okay with these could be moved back to once every 12 hours or once a day. Will leave this up to GI and Medicine service to decide how to proceed. Dr. Calvillo stated that if she stop bleeding he may consider doing a quick prep colonoscopy at some point. Will leave this up to his decision making. (2) Irritable bowel syndrome: Onset Date: ~11/2019 Code(s): K58.9 - Irritable bowel syndrome without diarrhea Status: Acute (3) Obesity (BMI 30.0-34.9): Onset Date: Unknown Code(s): E66.9 - Obesity, unspecified Status: Acute (4) Hypertension: Onset Date: Unknown Code(s): I10 - Essential (primary) hypertension Status: Acute (5) Diabetes mellitus type 2 in obese: Onset Date: Unknown Code(s): E11.69 - Type 2 diabetes mellitus with other specified complication; E66.9 - Obesity, unspecified Status: Acute (6) Acute blood loss anemia: Onset Date: ~03/28/20 Code(s): D62 - Acute posthemorrhagic anemia Status: Acute Assessment and Plan: Patient to see 2 units of blood yesterday and her hemoglobin came up to 10 0.0 or so. She is down slightly today but stable with good vital signs. Additional Plan Will standby in case surgical intervention is needed but it appears that the bleeding has stopped at this time. Subjective Subjective Date/Time Seen: 03/29/20 09:44 Patient is sitting up in bed trying to clear liquid diet when I arrived. She is much more alert today. She vaguely remembers me being there yesterday. She has had no bowel movement since arriving in IMU yesterday late morning. Hemoglobin most recently is stable at around 9.4. Patient has some cramping left abdominal pain otherwise feels okay and is not nauseated this morning. Apparently did vomit once after trying some clear liquids/chicken broth last evening. Review of Systems Constitutional: Constitutional: Reports no additional constitutional complaints ENT: Reports other (Mucous Membranes moist.) Cardiovascular: Cardiovascular: Denies dyspnea Respiratory: Respiratory: Denies pain on inspiration and Denies dyspnea Gastrointestinal: Gastrointestinal: Reports as per HPI, Reports GI cramping (Some cramping left-sided abdominal pain today) and Reports vomiting (X1 last evening none today) Musculoskeletal: Musculoskeletal: Reports other (No calf swelling or edema) Integumentary/Breasts: Skin/Breast: Reports system reviewed and no additional complaints, except as docu Exam Const: General: cooperative, no acute distress, alert and awake Orientation/consciousness: patient oriented x3 HENMT: Mouth: Yes moist mucous membranes Neck: Neck: normal visual inspection Chest: Chest palpation & inspection: normal inspection of the chest Resp: Effort & Inspection: normal respiratory effort Auscultation: clear to auscultation bilaterally Cardio: Jugular venous distension: no JVD Rate: regular rate Rhythm: regular rhythm Heart sounds: Murmur heart sound present (Grade 2/6 systolic) systolic GI: Inspection: normal to inspection GI Palp: Yes abdominal tenderness (Mild to palpation in the left lower quadrant and the left mid abdomen.) and Yes Soft to palpation Auscultation: normal bowel sounds Rectal Exam: deferred Skin: General skin exam: normal color and no rashes or lesions noted Neuro: General: patient oriented x3 and moves all extremities Speech: normal speech Extrem: General: normal exam except as noted Right upper extremity: no edema Psych: Mental Status: mental status grossly normal
--- NOTE | 2020-03-29 09:53 | WPDGIPROGNO ---
Progress Note: A&P Assessment and Plan (1) Diverticulosis large intestine w/o perforation or abscess w/bleeding: Onset Date: ~03/28/20 Code(s): K57.31 - Diverticulosis of large intestine without perforation or abscess with bleeding Status: Acute Assessment and Plan: Bleeding appears to have abated. Plan is to continue monitor hemoglobin. Allow liquid diet. Advance as tolerated. Given the fact she had a colonoscopy 2 weeks ago I am not planning to repeat this. Unless bleeding persists. (2) LGI bleed: Onset Date: ~03/28/20 Code(s): K92.2 - Gastrointestinal hemorrhage, unspecified Status: Acute Assessment and Plan: Massive lower GI bleeding yesterday appears to have stopped. Appears to have been from diverticular disease. Continue close observation. (3) Acute blood loss anemia: Onset Date: ~03/28/20 Code(s): D62 - Acute posthemorrhagic anemia Status: Acute Assessment and Plan: Patient required transfusion 2units of pack cells. This appears to have stabilized at this time. Continue monitor hemoglobin. (4) Irritable bowel syndrome: Onset Date: ~11/2019 Code(s): K58.9 - Irritable bowel syndrome without diarrhea Status: Acute Assessment and Plan: Patient has pain in complains of difficulty having a bowel movement. Likely is cleansed after significant blood loss yesterday. Will allow de [place] suppository. Suspect her current pain is related to irritable bowel syndrome. Diverticulitis felt unlikely at this point. Subjective Date/time seen: 03/29/20 09:53 Patient complains of pain this morning states she has difficulty having a bowel movement. Massive lower GI bleeding yesterday. She has had no bowel movements since yesterday morning. Appears quite anxious this morning. Review of Systems Review of Systems: All systems reviewed & are unremarkable except as noted in HPI and below Exam Narrative: Exam Narrative: Physical exam reveals Vital Signs to be stable. Lungs are clear. Heart without murmur. Abdomen is obese. Soft no localized tenderness evident. No masses evident. Objective Data Vital Signs Vital Signs: Vital Signs - 24 hr 03/28/20 10:00 03/28/20 10:21 03/28/20 10:24 Temperature 97.9 F 97.7 F Pulse Rate 107 H 106 H 107 H Respiratory Rate 16 Blood Pressure 123/60 122/84 Pulse Oximetry 98 100 03/28/20 10:37 03/28/20 11:15 03/28/20 11:37 Temperature 98.2 F 98.7 F Pulse Rate 103 H 115 H 106 H Respiratory Rate 20 20 20 Blood Pressure 100/60 125/68 111/57 L Pulse Oximetry 100 100 100 03/28/20 11:56 03/28/20 12:00 03/28/20 12:37 Temperature 97.3 F L 97.3 F L Pulse Rate 107 H 107 H 107 H Respiratory Rate 16 20 20 Blood Pressure 112/51 L 112/51 L Pulse Oximetry 97 100 100 03/28/20 13:10 03/28/20 13:25 03/28/20 13:26 Temperature 98.7 F 97.4 F L 98.6 F Pulse Rate 105 H 106 H 108 H Respiratory Rate 20 20 20 Blood Pressure 134/66 148/77 H 121/68 Pulse Oximetry 100 100 100 03/28/20 14:00 03/28/20 14:25 03/28/20 16:00 Temperature 97.8 F Pulse Rate 111 H 103 H 104 H Respiratory Rate 20 Blood Pressure 145/82 H Pulse Oximetry 100 03/28/20 17:04 03/28/20 18:00 03/28/20 18:57 Temperature 97.8 F 97.5 F L Pulse Rate 108 H 106 H 112 H Respiratory Rate 18 20 Blood Pressure 148/62 H 150/78 H Pulse Oximetry 100 98 03/28/20 20:00 03/28/20 20:18 03/28/20 22:00 Temperature Pulse Rate 112 H 113 H 85 Respiratory Rate 20 Blood Pressure Pulse Oximetry 98 03/28/20 23:51 03/29/20 00:00 03/29/20 02:00 Temperature 96.4 F L Pulse Rate 81 81 87 Respiratory Rate 16 16 Blood Pressure 135/77 Pulse Oximetry 100 100 03/29/20 04:00 03/29/20 06:00 03/29/20 08:11 Temperature 96.3 F L 96.8 F L Pulse Rate 88 91 89 Respiratory Rate 18 22 H Blood Pressure 144/74 H 165/77 H Pulse Oximetry 100 Intake/Output Intake/Output: Intake & Output
[2020-03-29] MEDS: lisinopriL 20 MG TABLET 40 MG PO (11:54)
[2020-03-29] MEDS: INSULIN GLARGINE (*BKC) 100 UNITS/ML 12 UNITS SUB-Q (11:55)
[2020-03-29] MEDS: BISACODYL 10 MG SUPPOSITORY RECTAL (11:55)
[2020-03-29 12:26] LABS: Glucose Point of Care 212 (65-105)
--- NOTE | 2020-03-29 14:10 | PC.NURSE ---
This patient, Debbie Ziegler, was transferred to [[facility] ] on 03/29/20 at 1340. Personal belongings sent with patient. Report given to [LESLEE Au ]. Appropriate documentation sent with patient.
--- NOTE | 2020-03-29 16:50 | PM.IMPN ---
Progress Note: A&P Assessment and Plan (1) LGI bleed: Onset Date: ~03/28/20 Code(s): K92.2 - Gastrointestinal hemorrhage, unspecified Status: Acute Assessment and Plan: found to be probable diverticular with recent normal colonoscopy by history and findings on CT and nuclear med scan. transfuse to keep hemoglobin above 8 and maintain blood pressure in hemoglobin this a.m. 9.3 and stable with no further bleeding clear liquid diet today (2) Acute blood loss anemia: Onset Date: ~03/28/20 Code(s): D62 - Acute posthemorrhagic anemia Status: Acute Assessment and Plan: secondary to diverticular bleed . as above hemoglobin stable at 9.3 (3) Diabetes mellitus type 2 in obese: Onset Date: Unknown Code(s): E11.69 - Type 2 diabetes mellitus with other specified complication; E66.9 - Obesity, unspecified Status: Acute Assessment and Plan: by history blood sugars have been running low with her weight loss. A1c 6.5 restart low-dose Lantus daily with her sliding scale (4) Hypertension: Onset Date: Unknown Code(s): I10 - Essential (primary) hypertension Status: Acute Assessment and Plan: history of hypertension and blood pressure has rebounded so resume her beta-víctor and CARINE-inhibitor (5) DVT prophylaxis: Code(s): Z29.9 - Encounter for prophylactic measures, unspecified Status: Acute Assessment and Plan: mechanical with GI bleed Subjective Date/time seen: 03/29/20 16:50 Interval history: date of visit 03/29. 49-year-old hypertensive type 2 diabetic with history of diverticular disease admitted with acute onset primary blood per rectum with CT scan in nuclear scan revealing bleeding from the splenic flexure. She received 2 units of packed cells and hemoglobin has been stable above 9 but she continues to complain of discomfort in left lower quadrant. No nausea or vomiting Exam Narrative: Exam Narrative: blood pressure 160/76 pulse is 76 sat 98% afebrile pupils equal reactive light sclera anicteric mouth normal mucosa neck supple lungs clear CV regular rate rhythm systolic ejection murmur lower left sternal border abdomen is soft , some tenderness on palpation left mid to lower abdomen, bowel sounds normal active extremities without edema distal pulses 2+ and symmetrical neuro alert, focal deficits integument no skin breakdown rashes psych affect is very labile Objective Data Vital Signs Vital Signs: Vital Signs - 24 hr 03/28/20 17:04 03/28/20 18:00 03/28/20 18:57 Temperature 36.6 C 36.4 C L Pulse Rate 108 H 106 H 112 H Respiratory Rate 18 20 Blood Pressure 148/62 H 150/78 H Pulse Oximetry 100 98 03/28/20 20:00 03/28/20 20:18 03/28/20 22:00 Temperature Pulse Rate 112 H 113 H 85 Respiratory Rate 20 Blood Pressure Pulse Oximetry 98 03/28/20 23:51 03/29/20 00:00 03/29/20 02:00 Temperature 35.8 C L Pulse Rate 81 81 87 Respiratory Rate 16 16 Blood Pressure 135/77 Pulse Oximetry 100 100 03/29/20 04:00 03/29/20 06:00 03/29/20 08:00 Temperature 35.7 C L Pulse Rate 88 91 85 Respiratory Rate 18 Blood Pressure 144/74 H Pulse Oximetry 100 03/29/20 08:11 03/29/20 10:00 03/29/20 14:20 Temperature 36.0 C L 36.7 C Pulse Rate 89 75 79 Respiratory Rate 22 H 18 Blood Pressure 165/77 H 169/92 H Pulse Oximetry 100 Intake/Output Intake/Output: Intake & Output 03/26/20 03/27/20 03/28/20 03/29/20 23:59 23:59 23:59 23:59 Intake Total 1989 2800 Output Total 1400 Balance 1989 1400 Meds/Results Medications: Active Medications Generic Name Dose Route Start Last Admin Trade Name Freq PRN Reason Stop Dose Admin Acetaminophen 650 mg 03/28/20 17:50 03/29/20 08:43 Acetaminophen 325 Mg Tablet PO 650 mg Q6H PRN Administration Mild Pain (1-3) or Fever Hydrocodone Bitart/Acetaminophen 1 tab 03/28/20 21:00 03/28
[2020-03-29 16:58] LABS: Glucose Point of Care 165 (65-105)
[2020-03-29] MEDS: HYDROcodone/acetaminophen (*CRX) 5-325 MG TABLET 1 TAB PO (21:36)
[2020-03-29 21:57] LABS: Glucose Point of Care 287 (65-105)
[2020-03-30 05:26] LABS: Glucose Point of Care 155 (65-105)
[2020-03-30 05:28] VITALS: BP 153/67; PULSE 84; RESP 16; TEMP 36.9; O2SAT 100
[2020-03-30 05:59] LABS: Basophils Absolute Auto 0.1 K/mm3 (0.0-0.1); Basophils Percent Auto 0.9 % (0.2-1.2); Eosinophils Absolute Auto 0.2 K/mm3 (0-0.3); Eosinophils Percent Auto 3.3 % (0-4.4); Hematocrit 25.4 % (37.0-47.0); Hemoglobin 8.7 g/dL (12.0-15.0); Immature Granulocyte Absolute 0.03 K/mm3 (0.00-0.031); Immature Granulocyte Percent A 0.4 % (0-0.5); Lymphocytes Absolute Auto 1.88 K/mm3 (0.9-3.2); Lymphocytes Percent Auto 26.8 % (18.3-44.2); Mean Corpuscular HGB Conc 34.3 g/dl (32-36); Mean Corpuscular Hemoglobin 29.1 pg (26-34); Mean Corpuscular Volume 84.9 fl (80-100); Mean Platelet Volume 10.6 fl (7.4-10.4); Monocytes Absolute Auto 0.5 K/mm3 (0.1-0.6); Monocytes Percent Auto 7.6 % (2.6-8.5); Neutrophils Absolute Auto 4.3 K/mm3 (1.3-6.7); Platelet Count Result 190 k/mm3 (150-375); Red Blood Count 2.99 M/mm3 (4.2-5.4); Red Cell Distribution Width 12.8 % (11.5-14.5)
[2020-03-30 06:20] LABS: Anion Gap 4 mmol/L (8-16); Blood Urea Nitrogen 8 mg/dL (7-17); Calcium 8.2 mg/dL (8.4-10.2); Carbon Dioxide 27 mmol/L (22-30); Chloride 110 mmol/L (98-107); Estimated CRCL calculation 106 ml/min; Estimated Glomerular Filt Rate > 60; Glucose 169 mg/dL (65-105); Potassium 3.5 mmol/L (3.4-5.0); Sodium 141 mmol/L (137-145)
[2020-03-30 07:56] LABS: Glucose Point of Care 206 (65-105)
[2020-03-30] MEDS: INSULIN GLARGINE (*BKC) 100 UNITS/ML 12 UNITS SUB-Q (08:06)
[2020-03-30] MEDS: INSULIN ASPART (*BKC) 100 UNITS/ML SUB-Q (08:08)
[2020-03-30 08:10] VITALS: PULSE 84
[2020-03-30] MEDS: lisinopriL 20 MG TABLET 40 MG PO (08:10)
[2020-03-30] MEDS: GABAPENTIN 100 MG CAPSULE PO ×3 (08:10→16:24)
[2020-03-30] MEDS: METOPROLOL TARTRATE 50 MG TAB PO ×2 (08:10→20:01)
[2020-03-30] MEDS: PANTOPRAZOLE SODIUM IV 40 MG VIAL IV PUSH ×2 (08:11→20:00)
[2020-03-30] MEDS: ACETAMINOPHEN 325 MG TABLET 650 MG PO (08:19)
[2020-03-30] MEDS: diazePAM (*CRX) 5 MG TABLET PO (08:20)
[2020-03-30 08:46] VITALS: BP 154/76; PULSE 82; RESP 18; TEMP 35.9; O2SAT 99
--- NOTE | 2020-03-30 09:17 | WPDGIPROGNO ---
Progress Note: A&P Additional Plan Patient denies abdominal pain this morning. No additional bleeding reported. She does complain of foot ankle some back pain. Physical exam reveals abdomen to be soft nontender with no organomegaly. Extremities are without clubbing cyanosis or edema. Labs reveal hemoglobin 8.7, hematocrit 25.4, MCV 84. Impression 1. Resolved lower GI bleeding. Attributed to diverticular disease. Plan is to advance to a high-fiber diet. She may benefit from monitoring hemoglobin briefly after discharge. 2. Irritable bowel syndrome. 3. Anxiety. Plan is to increase diet and activity. Resume previous home meds. Avoid anticoagulation. Hopefully discharge if diet Malinda rated and hemoglobin stable. Subjective Date/time seen: 03/30/20 09:17 Objective Data Vital Signs Vital Signs: Vital Signs - 24 hr 03/29/20 10:00 03/29/20 14:20 03/29/20 20:17 Temperature 98.1 F 97.7 F Pulse Rate 75 79 90 Respiratory Rate 18 14 Blood Pressure 169/92 H 152/83 H Pulse Oximetry 100 100 03/29/20 21:36 03/30/20 05:28 03/30/20 08:10 Temperature 98.4 F Pulse Rate 90 84 84 Respiratory Rate 16 Blood Pressure 153/67 H Pulse Oximetry 100 03/30/20 08:46 Temperature 96.6 F L Pulse Rate 82 Respiratory Rate 18 Blood Pressure 154/76 H Pulse Oximetry 99 Intake/Output Intake/Output: Intake & Output 03/27/20 03/28/20 03/29/20 03/30/20 23:59 23:59 23:59 23:59 Intake Total 1989 1030 929 Output Total 1700 600 Balance 1989 3130 329 Meds/Results Medications: Active Medications Generic Name Dose Route Start Last Admin Trade Name Freq PRN Reason Stop Dose Admin Acetaminophen 650 mg 03/28/20 17:50 03/30/20 08:19 Acetaminophen 325 Mg Tablet PO 650 mg Q6H PRN Administration Mild Pain (1-3) or Fever Hydrocodone Bitart/Acetaminophen 1 tab 03/28/20 21:00 03/29/20 21:36 Hydrocodone/Acetaminophen (*Crx) 5-325 Mg Tablet PO 1 tab HS JUANA Administration Dextrose 12.5 gm 03/28/20 11:01 Dextrose 50% 25 Gm/50 Ml Syringe IV PUSH PRN PRN Hypoglycemia Protocol Diazepam 5 mg 03/28/20 17:48 03/30/20 08:20 Diazepam (*Crx) 5 Mg Tablet PO 5 mg Q6H PRN Administration Anxiety Gabapentin 100 mg 03/28/20 17:00 03/30/20 08:10 Gabapentin 100 Mg Capsule PO 100 mg TID JUANA Administration Glucagon 1 mg 03/28/20 11:01 Glucagon For Inj 1 Mg Vial IM PRN PRN Hypoglycemia Protocol Glucose 15 gm 03/28/20 11:01 Glucose Oral Gel 15 Gm Of Glucse In 37.5 Gm Tube PO PRN PRN Hypoglycemia Protocol Sodium Chloride 1,000 mls @ 75 mls/hr 03/28/20 06:00 03/30/20 05:20 Normal Saline Iv IV CONT 75 mls/hr .[id number] JUANA Infusion Dextrose 1,000 mls @ 100 mls/hr 03/28/20 11:01 Dextrose 5% 1,000 Ml IVPB PRN PRN Hypoglycemia Protocol Insulin Aspart 3 - 6 units 03/28/20 12:00 03/30/20 08:08 Insulin Aspart (*Bkc) 100 Units/Ml SUB-Q 3 units TIDWM JUANA Administration Protocol Insulin Glargine 12 units 03/29/20 09:00 03/30/20 08:06 Insulin Glargine (*Bkc) 100 Units/Ml SUB-Q 12 units DAILY JUANA Administration Lisinopril 40 mg 03/29/20 09:00 03/30/20 08:10 Lisinopril 20 Mg Tablet PO 40 mg QAM JUANA Administration Metoprolol Tartrate 50 mg 03/28/20 21:00 03/30/20 08:10 Metoprolol Tartrate 50 Mg Tab PO 50 mg Q12HR JUANA Administration Ondansetron HCl 4 mg 03/28/20 17:48 03/28/20 20:48 Ondansetron Inj 4 Mg/2 Ml Vial IV PUSH 4 mg Q6H PRN Administration Nausea And Vomiting Pantoprazole Sodium 40 mg 03/28/20 09:10 03/30/20 08:11 Pantoprazole Sodium Iv 40 Mg Vial IV PUSH 40 mg Q12HR JUANA Administration Radiology Results: ITS Impressions GI Bleed Scan Nuclear Medicine 03/28/20 08:30 IMPRESSION: 1. Active gastrointestinal bleed which appears to originate at the splenic flexure of the colon. Abdomen/Pelvi
[2020-03-30 11:32] LABS: Glucose Point of Care 138 (65-105)
[2020-03-30 11:49] VITALS: BMI 31.4
[2020-03-30] MEDS: SODIUM CHLORIDE 0.9% IV 1,000 ML 75 ML IV CONT (12:18)
[2020-03-30 12:28] LABS: Hemoglobin 10.1 g/dL (12.0-15.0); Mean Corpuscular HGB Conc 33.7 g/dl (32-36); Mean Corpuscular Hemoglobin 29.6 pg (26-34); Mean Platelet Volume 10.5 fl (7.4-10.4); Platelet Count Result 220 k/mm3 (150-375); Red Blood Count 3.41 M/mm3 (4.2-5.4); Red Cell Distribution Width 13.1 % (11.5-14.5); White Blood Count 9.8 K/mm3 (4.5-10.0)
[2020-03-30] MEDS: POTASSIUM CHLORIDE 20 MEQ TABLET 40 MEQ PO (15:21)
--- NOTE | 2020-03-30 15:30 | PM.IMPN ---
Progress Note: A&P Assessment and Plan (1) LGI bleed: Onset Date: ~03/28/20 Code(s): K92.2 - Gastrointestinal hemorrhage, unspecified Status: Acute Assessment and Plan: found to be probable diverticular with recent normal colonoscopy by history and findings on CT and nuclear med scan. transfuse as needed and maintain blood pressure . hemoglobin this a.m. 8.7 and repeat after bloody stool 10.1. advance diet further today (2) Acute blood loss anemia: Onset Date: ~03/28/20 Code(s): D62 - Acute posthemorrhagic anemia Status: Acute Assessment and Plan: secondary to diverticular bleed . as above hemoglobin stable (3) Diabetes mellitus type 2 in obese: Onset Date: Unknown Code(s): E11.69 - Type 2 diabetes mellitus with other specified complication; E66.9 - Obesity, unspecified Status: Acute Assessment and Plan: by history blood sugars have been running low with her weight loss. A1c 6.5 restarted lantus and increased to 15 u today (home dose 15 u bid) (4) Hypertension: Onset Date: Unknown Code(s): I10 - Essential (primary) hypertension Status: Acute Assessment and Plan: history of hypertension and blood pressure has rebounded so resumeed her beta-víctor and CARINE-inhibitor 03/29 (5) DVT prophylaxis: Code(s): Z29.9 - Encounter for prophylactic measures, unspecified Status: Acute Assessment and Plan: mechanical with GI bleed Subjective Date/time seen: 03/30/20 15:30 Interval history: date of visit 03/30. 49-year-old hypertensive type 2 diabetic with history of diverticular disease admitted with acute onset bright red blood per rectum with CT scan and nuclear scan revealing bleeding from the splenic flexure. She received 2 units of packed cells and hemoglobin has been stable above 9 but she continues to complain of discomfort in left lower quadrant. No nausea or vomiting Sitting in chair today and ambulating intermittantly , had some blood per rectum again this am Exam Narrative: Exam Narrative: blood pressure 152/76 pulse is 76 sat 98% afebrile pupils equal reactive light sclera anicteric mouth normal mucosa neck supple lungs clear CV regular rate rhythm systolic ejection murmur lower left sternal border abdomen is soft , some tenderness on palpation left mid to lower abdomen, bowel sounds normal active extremities without edema distal pulses 2+ and symmetrical neuro alert, focal deficits integument no skin breakdown rashes psych affect is very labile Objective Data Vital Signs Vital Signs: Vital Signs - 24 hr 03/29/20 20:17 03/29/20 21:36 03/30/20 05:28 Temperature 36.5 C 36.9 C Pulse Rate 90 90 84 Respiratory Rate 14 16 Blood Pressure 152/83 H 153/67 H Pulse Oximetry 100 100 03/30/20 08:10 03/30/20 08:46 Temperature 35.9 C L Pulse Rate 84 82 Respiratory Rate 18 Blood Pressure 154/76 H Pulse Oximetry 99 Intake/Output Intake/Output: Intake & Output 03/27/20 03/28/20 03/29/20 03/30/20 23:59 23:59 23:59 23:59 Intake Total 1989 4830 1640 Output Total 1700 1525 Balance 1989 3130 115 Meds/Results Medications: Active Medications Generic Name Dose Route Start Last Admin Trade Name Freq PRN Reason Stop Dose Admin Acetaminophen 650 mg 03/28/20 17:50 03/30/20 08:19 Acetaminophen 325 Mg Tablet PO 650 mg Q6H PRN Administration Mild Pain (1-3) or Fever Hydrocodone Bitart/Acetaminophen 1 tab 03/28/20 21:00 03/29/20 21:36 Hydrocodone/Acetaminophen (*Crx) 5-325 Mg Tablet PO 1 tab HS JUANA Administration Dextrose 12.5 gm 03/28/20 11:01 Dextrose 50% 25 Gm/50 Ml Syringe IV PUSH PRN PRN Hypoglycemia Protocol Diazepam 5 mg 03/28/20 17:48 03/30/20 08:20 Diazepam (*Crx) 5 Mg Tablet PO 5 mg Q6H PRN Administration Anxiety Gabapentin 100 mg 03/28/20 17:00 03/30/20 12:18 Gabapentin 100 Mg Capsul
[2020-03-30 16:00] VITALS: BP 158/79; PULSE 82; RESP 16; TEMP 36; O2SAT 100
--- NOTE | 2020-03-30 16:31 | PM.PNGS ---
Progress Note: A&P Assessment and Plan (1) Diverticulosis large intestine w/o perforation or abscess w/bleeding: Onset Date: ~03/28/20 Code(s): K57.31 - Diverticulosis of large intestine without perforation or abscess with bleeding Status: Acute Assessment and Plan: Bleeding appears to have stopped. Would recommend doing cbc once a day. Will leave this up to GI and Medicine service to decide how to proceed. Dr. Calvillo stated that if she stop bleeding he may consider doing a quick prep colonoscopy at some point. Will leave this up to his decision making. discussed with the patient today at there is no specific treatment for this type of GI bleed. Would encourage daily fiber supplement and high-fiber diet when she is advancing her diet. (2) Irritable bowel syndrome: Onset Date: ~11/2019 Code(s): K58.9 - Irritable bowel syndrome without diarrhea Status: Acute (3) Obesity (BMI 30.0-34.9): Onset Date: Unknown Code(s): E66.9 - Obesity, unspecified Status: Acute (4) Hypertension: Onset Date: Unknown Code(s): I10 - Essential (primary) hypertension Status: Acute (5) Diabetes mellitus type 2 in obese: Onset Date: Unknown Code(s): E11.69 - Type 2 diabetes mellitus with other specified complication; E66.9 - Obesity, unspecified Status: Acute (6) Acute blood loss anemia: Onset Date: ~03/28/20 Code(s): D62 - Acute posthemorrhagic anemia Status: Acute Assessment and Plan: Her hemoglobin was down slightly today but stable with good vital signs. also a repeat hemoglobin because of the dark stools that she had mid morning reveals H hemoglobin up to 10.1. Will wait and see what tomorrow as is and I agree with advancing her diet. Additional Plan Will standby in case surgical intervention is needed but it appears that the bleeding has stopped at this time. Ifll is stableI will probably sign off tomorrow. Subjective Subjective Date/Time Seen: 03/30/20 15:31 Patient laying in bed when I entered the room. She denies abdominal pain if there is no exam today. She was slightly concerned because of some dark red blood per rectum earlier today. Interestingly read repeat H&H showed her hemoglobin was actually higher than this morning. Patient moved up to a high-fiber diet. Review of Systems Constitutional: Constitutional: Reports as per HPI, Reports no additional constitutional complaints and Denies headache(s) Eyes: Eyes: Denies loss of vision and Denies eye pain ENT: Reports Normal hearing present, Denies change in voice, Denies dizziness, Denies headache(s) and Reports other (Mucous Membranes moist.) Cardiovascular: Cardiovascular: Denies chest pain, Denies dyspnea and Reports other ( Known hypertension on multiple medications.) Respiratory: Respiratory: Reports as per HPI, Denies pain on inspiration, Denies dyspnea and Denies wheezing Gastrointestinal: Gastrointestinal: Reports as per HPI and Reports melena ( One small 1 moderate 1 today (probably old blood from the colon).) Genitourinary: Genitourinary: Reports no additional female genitourinary complaints Musculoskeletal: Musculoskeletal: Denies back pain, Denies arthralgias and Reports other (No calf swelling or edema) Integumentary/Breasts: Skin/Breast: Reports system reviewed and no additional complaints, except as docu Neurologic: Reports Normal hearing present, Denies dizziness, Denies headache(s), Denies loss of vision and Denies memory loss Psychiatric: Psychiatric: Reports depression, Denies memory loss and Denies panic attacks Endocrine: Endocrine: Reports no additional endocrine complaints Hematologic/Lymphatic: Hematologic/Lymphatic: Reports no additional hematologic/lymphatic complaints Allergic/Immunologic: Allergic/Immunologic: Denies wheezing Exam Const: General: cooperative, no acute distress, alert and awake Orientation/consciousness
[2020-03-30 16:41] LABS: Glucose Point of Care 177 (65-105)
[2020-03-30 19:58] VITALS: BP 184/91; PULSE 85; RESP 12; TEMP 36.8; O2SAT 100
[2020-03-30 20:01] VITALS: PULSE 86
[2020-03-30 21:14] LABS: Glucose Point of Care 191 (65-105)
[2020-03-31] VITALS: BP 146/71; PULSE 97; RESP 14; TEMP 37.1; O2SAT 100
[2020-03-31] MEDS: ACETAMINOPHEN 325 MG TABLET 650 MG PO (02:45)
[2020-03-31] MEDS: diazePAM (*CRX) 5 MG TABLET PO (02:47)
[2020-03-31 05:37] VITALS: BP 181/87; PULSE 78; RESP 12; TEMP 36.5; O2SAT 99
[2020-03-31 05:46] LABS: Basophils Absolute Auto 0.1 K/mm3 (0.0-0.1); Basophils Percent Auto 0.8 % (0.2-1.2); Eosinophils Absolute Auto 0.3 K/mm3 (0-0.3); Eosinophils Percent Auto 3.4 % (0-4.4); Hematocrit 26.5 % (37.0-47.0); Immature Granulocyte Absolute 0.03 K/mm3 (0.00-0.031); Immature Granulocyte Percent A 0.4 % (0-0.5); Lymphocytes Absolute Auto 1.85 K/mm3 (0.9-3.2); Lymphocytes Percent Auto 21.6 % (18.3-44.2); Mean Corpuscular Hemoglobin 29.6 pg (26-34); Mean Corpuscular Volume 87.2 fl (80-100); Mean Platelet Volume 10.8 fl (7.4-10.4); Monocytes Absolute Auto 0.6 K/mm3 (0.1-0.6); Monocytes Percent Auto 6.5 % (2.6-8.5); Neutrophils Absolute Auto 5.8 K/mm3 (1.3-6.7); Neutrophils Percent Auto 67.3 % (45.5-73.1); Platelet Count Result 196 k/mm3 (150-375); Red Blood Count 3.04 M/mm3 (4.2-5.4); Red Cell Distribution Width 13.1 % (11.5-14.5); White Blood Count 8.6 K/mm3 (4.5-10.0)
[2020-03-31 06:03] LABS: Anion Gap 4 mmol/L (8-16); Blood Urea Nitrogen 7 mg/dL (7-17); Calcium 8.6 mg/dL (8.4-10.2); Carbon Dioxide 26 mmol/L (22-30); Chloride 109 mmol/L (98-107); Estimated CRCL calculation 106 ml/min; Estimated Glomerular Filt Rate > 60; Glucose 206 mg/dL (65-105); Potassium 3.8 mmol/L (3.4-5.0); Sodium 139 mmol/L (137-145)
[2020-03-31 06:14] VITALS: BP 166/77
[2020-03-31 07:50] LABS: Glucose Point of Care 210 (65-105)
[2020-03-31 08:06] VITALS: PULSE 81
[2020-03-31] MEDS: lisinopriL 20 MG TABLET 40 MG PO (08:06)
[2020-03-31] MEDS: GABAPENTIN 100 MG CAPSULE PO ×2 (08:06→12:35)
[2020-03-31] MEDS: METOPROLOL TARTRATE 50 MG TAB PO (08:06)
[2020-03-31] MEDS: PANTOPRAZOLE SODIUM IV 40 MG VIAL IV PUSH (08:07)
[2020-03-31] MEDS: INSULIN ASPART (*BKC) 100 UNITS/ML SUB-Q (08:09)
[2020-03-31] MEDS: INSULIN GLARGINE (*BKC) 100 UNITS/ML 15 UNITS SUB-Q (08:10)
[2020-03-31 11:46] LABS: Glucose Point of Care 160 (65-105)
--- NOTE | 2020-03-31 11:47 | WPDGIPROGNO ---
Progress Note: A&P Additional Plan Patient alert and comfortable this morning. Smiling. Up walking in the hallways. She states she had a formed stool. Small amount of old blood described. No active bleeding noted. Physical exam reveals Vital Signs to be stable. Lungs are clear. Abdomen is soft and nontender. Labs reveal hemoglobin 9.0, hematocrit 26.5, MCV 86 none. Hemoglobin yesterday was 10 per. impression 1. Resolved lower GI bleeding. Appears to be from diverticulosis. Bleeding scan suggest bleeding and at the his blood and lecture. Patient required transfusion 2units of packed red blood cells. Currently no additional bleeding described. 2. Diverticulosis plan is to allow high-fiber diet. Discharge when others agree. Follow-up CBC to ensure stability of hemoglobin at noon it anticipated. Subjective Date/time seen: 03/31/20 11:47 Objective Data Vital Signs Vital Signs: Vital Signs - 24 hr 03/30/20 16:00 03/30/20 19:58 03/30/20 20:01 Temperature 96.8 F L 98.3 F Pulse Rate 82 85 86 Respiratory Rate 16 12 Blood Pressure 158/79 H 184/91 H Pulse Oximetry 100 100 03/31/20 00:00 03/31/20 05:37 03/31/20 06:14 Temperature 98.7 F 97.7 F Pulse Rate 97 78 Respiratory Rate 14 12 Blood Pressure 146/71 H 181/87 H 166/77 H Pulse Oximetry 100 99 03/31/20 08:06 Temperature Pulse Rate 81 Respiratory Rate Blood Pressure Pulse Oximetry Intake/Output Intake/Output: Intake & Output 03/28/20 03/29/20 03/30/20 03/31/20 23:59 23:59 23:59 23:59 Intake Total 1989 0170 2701 650 Output Total 1700 2225 1300 Balance 1989 5361 355 -650 Meds/Results Medications: Active Medications Generic Name Dose Route Start Last Admin Trade Name Freq PRN Reason Stop Dose Admin Acetaminophen 650 mg 03/28/20 17:50 03/31/20 02:45 Acetaminophen 325 Mg Tablet PO 650 mg Q6H PRN Administration Mild Pain (1-3) or Fever Hydrocodone Bitart/Acetaminophen 1 tab 03/28/20 21:00 03/31/20 01:26 Hydrocodone/Acetaminophen (*Crx) 5-325 Mg Tablet PO Not Given HS JUANA Dextrose 12.5 gm 10/24/20 11:01 Dextrose 50% 25 Gm/50 Ml Syringe IV PUSH PRN PRN Hypoglycemia Protocol Diazepam 5 mg 03/28/20 17:48 03/31/20 02:47 Diazepam (*Crx) 5 Mg Tablet PO 5 mg Q6H PRN Administration Anxiety Gabapentin 100 mg 03/28/20 17:00 03/31/20 08:06 Gabapentin 100 Mg Capsule PO 100 mg TID JUANA Administration Glucagon 1 mg 03/28/20 11:01 Glucagon For Inj 1 Mg Vial IM PRN PRN Hypoglycemia Protocol Glucose 15 gm 03/28/20 11:01 Glucose Oral Gel 15 Gm Of Glucse In 37.5 Gm Tube PO PRN PRN Hypoglycemia Protocol Dextrose 1,000 mls @ 100 mls/hr 03/28/20 11:01 Dextrose 5% 1,000 Ml IVPB PRN PRN Hypoglycemia Protocol Insulin Aspart 3 - 6 units 03/28/20 12:00 03/31/20 08:09 Insulin Aspart (*Bkc) 100 Units/Ml SUB-Q 3 units TIDWM JUANA Administration Protocol Insulin Glargine 15 units 03/31/20 09:00 03/31/20 08:10 Insulin Glargine (*Bkc) 100 Units/Ml SUB-Q 15 units DAILY JUANA Administration Lisinopril 40 mg 03/29/20 09:00 03/31/20 08:06 Lisinopril 20 Mg Tablet PO 40 mg QAM JUANA Administration Metoprolol Tartrate 50 mg 03/28/20 21:00 03/31/20 08:06 Metoprolol Tartrate 50 Mg Tab PO 50 mg Q12HR JUANA Administration Ondansetron HCl 4 mg 03/28/20 17:48 03/28/20 20:48 Ondansetron Inj 4 Mg/2 Ml Vial IV PUSH 4 mg Q6H PRN Administration Nausea And Vomiting Pantoprazole Sodium 40 mg 03/28/20 09:10 03/31/20 08:07 Pantoprazole Sodium Iv 40 Mg Vial IV PUSH 40 mg Q12HR JUANA Administration Radiology Results: ITS Impressions GI Bleed Scan Nuclear Medicine 03/28/20 08:30 IMPRESSION: 1. Active gastrointestinal bleed which appears to originate at the splenic flexure of the colon. Abdomen/Pelvis CT 03/28/20 10:59 IMPRESSION: 1. Likely i
[2020-03-31 12:07] LABS: Hematocrit 29.2 % (37.0-47.0); Hemoglobin 9.7 g/dL (12.0-15.0)
--- NOTE | 2020-03-31 12:58 | PM.DS ---
DS: Admitting Diagnosis Admitting Diagnosis Admitting Diagnosis: GI bleed DS: Discharge Diagnosis Discharge Diagnosis (1) LGI bleed: Onset Date: ~03/28/20 Code(s): K92.2 - Gastrointestinal hemorrhage, unspecified Status: Acute Assessment and Plan: Patient presented with lower abd pain and bright red blood per rectum. NM scan shwong active GI bleed which appears to originate at the splenic flexure of the colon. CT scan showing likely intraluminal extravasation of contrast arising from a diverticulum at the proximal most descending colon which coincides with location of initial bowel activity on subsequent nuclear medicine gastrointestinal bleed study. She was admitted found to be probable diverticular with recent normal colonoscopy by history and findings on CT and nuclear med scan. She was followed by GI and general surgery. Diet started and advanced as tolerated. (2) Acute blood loss anemia: Onset Date: ~03/28/20 Code(s): D62 - Acute posthemorrhagic anemia Status: Acute Assessment and Plan: As above. Patient did become hypotensive and lethargic early on 03/28 and was transferred IMU where she was fluid resuscitated and Trendelenburg. Her pressure rebounded to 120s systolic. Hgb 13.1 on admission but dropped requiring 2U PRBC on 03/28. Hgb stabilized in 9-10 range. Secondary to diverticular bleed. (3) Diabetes mellitus type 2 in obese: Onset Date: Unknown Code(s): E11.69 - Type 2 diabetes mellitus with other specified complication; E66.9 - Obesity, unspecified Status: Acute Assessment and Plan: A1c 6.5. Glucose has been running low with her weight loss. Lantus restarted and increased to 15U. We continued [employer]ks covering with sliding scale. Hypoglycemia protocol was available as needed. (4) Hypertension: Onset Date: Unknown Code(s): I10 - Essential (primary) hypertension Status: Acute Assessment and Plan: Patient's blood pressure was monitored. Blood pressure was elevated at times. Weresumed her beta-víctor and CARINE-inhibitor. DS: Summary Hospital Course Reason for hospitalization: 49yo female here for rectal bleeding. Please see H&P for details. Hospital Course: As above Time Spent with Patient Time attestation: Total time spent providing and/or coordinating discharge services: 32 minutes Time spent: Greater than 30 minutes Exam Narrative: Exam Narrative: Solid BM with associated blood in water. Has been having complaints of stomach and back pain. More recently over the past 6 weeks with hip and ankle pain. Recent colo showing IH. Known murmur follwed by cardiology. AF 97.7 166/77 81 12 99%ra Gen - NARD Chest - CTA bilaterally, nml RR CV - RRR S1/S2; 2/6 systolic murmur LUSB Abd - Soft, ND, Positive BS, minimal LLQ pain Ext - No pedal edema; no active synovitis. Neuro - Alert and oriented. Nonfocal exam. Psych - flat affect. Skin - Warm and dry DS: Data Data Completed and Pending Labs on day of discharge: Labs from last 24 hours 03/31/20 03/31/20 03/31/20 11:43 11:37 07:47 WBC RBC Hgb 9.7 L Hct 29.2 L MCV MCH MCHC RDW Plt Count MPV Immature Gran % (Auto) Neut % (Auto) Lymph % (Auto) [place] % (Auto) Eos % (Auto) Baso % (Auto) Lymph # (Auto) [place] # (Auto) Eos # (Auto) Baso # (Auto) Abs Immat Gran (auto) Absolute Neuts (auto) Absolute Nucleated RBC Nucleated RBC % Sodium Potassium Chloride Carbon Dioxide Anion Gap BUN Creatinine Estim Creat Clear Calc Estimated GFR Glucose POC Capillary Glucose 160 H 210 H Calcium 03/31/20 03/31/20 03/30/20 05:14 05:14 21:11 WBC 8.6 RBC 3.04 L Hgb 9.0 L Hct 26.5 L MCV 87.2 MCH 29.6 MCHC 34.0 RDW 13.1 Plt Count 196 MPV 10.8 H Immature Gran % (Auto) 0.4 Neut % (
--- NOTE | 2020-03-31 16:48 | PM.PNGS ---
Progress Note: A&P Assessment and Plan (1) Diverticulosis large intestine w/o perforation or abscess w/bleeding: Onset Date: ~03/28/20 Code(s): K57.31 - Diverticulosis of large intestine without perforation or abscess with bleeding Status: Acute Assessment and Plan: Bleeding appears to have stopped. Would recommend doing cbc once a day. Will leave this up to GI and Medicine service to decide how to proceed. Dr. Calvillo stated that if she stop bleeding he may consider doing a quick prep colonoscopy at some point. Will leave this up to his decision making. discussed with the patient today at there is no specific treatment for this type of GI bleed. Would encourage daily fiber supplement and high-fiber diet when she is advancing her diet. (2) Irritable bowel syndrome: Onset Date: ~11/2019 Code(s): K58.9 - Irritable bowel syndrome without diarrhea Status: Acute (3) Obesity (BMI 30.0-34.9): Onset Date: Unknown Code(s): E66.9 - Obesity, unspecified Status: Acute (4) Hypertension: Onset Date: Unknown Code(s): I10 - Essential (primary) hypertension Status: Acute (5) Diabetes mellitus type 2 in obese: Onset Date: Unknown Code(s): E11.69 - Type 2 diabetes mellitus with other specified complication; E66.9 - Obesity, unspecified Status: Acute (6) Acute blood loss anemia: Onset Date: ~03/28/20 Code(s): D62 - Acute posthemorrhagic anemia Status: Acute Assessment and Plan: Her hemoglobin was down slightly today but stable with good vital signs. also a repeat hemoglobin because of the dark stools that she had mid morning reveals H hemoglobin up to 10.1. Will wait and see what tomorrow as is and I agree with advancing her diet. Additional Plan Will standby in case surgical intervention is needed but it appears that the bleeding has stopped at this time. I will sign off and I have told patient that there is no need for to see me in the office and was further bleeding occurs. I re-emphasized the importance of a high-fiber diet and perhaps taking a fiber supplement at home using Metamucil for this 1st week and then any time she travels because it is harder to do a high-fiber diet while traveling. Subjective Subjective Date/Time Seen: 03/31/20 11:48 Patient is sitting on the edge of the bed when I entered the room today. She states she has had a more formed bowel movement today. She has been tolerating a high-fiber diet. Denies abdominal pain today. Review of Systems Constitutional: Constitutional: Reports as per HPI, Reports no additional constitutional complaints and Denies headache(s) Eyes: Eyes: Denies loss of vision and Denies eye pain ENT: Reports Normal hearing present, Denies change in voice, Denies dizziness, Denies headache(s) and Reports other (Mucous Membranes moist.) Cardiovascular: Cardiovascular: Denies chest pain, Denies dyspnea and Reports other ( Known hypertension on multiple medications.) Respiratory: Respiratory: Reports as per HPI, Denies pain on inspiration, Denies dyspnea and Denies wheezing Gastrointestinal: Gastrointestinal: Reports as per HPI Genitourinary: Genitourinary: Reports no additional female genitourinary complaints Musculoskeletal: Musculoskeletal: Denies back pain, Denies arthralgias and Reports other (No calf swelling or edema) Integumentary/Breasts: Skin/Breast: Reports system reviewed and no additional complaints, except as docu Neurologic: Reports Normal hearing present, Denies dizziness, Denies headache(s), Denies loss of vision and Denies memory loss Psychiatric: Psychiatric: Reports depression, Denies memory loss and Denies panic attacks Endocrine: Endocrine: Reports no additional endocrine complaints Hematologic/Lymphatic: Hematologic/Lymphatic: Reports no additional hematologic/lymphatic complaints Allergic/Immunologic: Allergic/Immunologic: Denies wheezing Exa
== END 2020-03-31 14:29 | disposition home or self-care (01) ==
LOC: ANHED 06:07 → ANH3MED 07:26 → ANHIMU 09:06 → ANH3MED 03-29 22:18
PROVIDERS: Emergency Medicine; Internal Medicine; Nurse Practitioner; Physician Assistant; Admitting Provider Family Medicine; Emergency Provider Emergency Medicine; PCP Family Medicine; Visit Provider Internal Medicine
DX: K57.31 Diverticulosis of large intestine without perforation or abscess with bleeding (principal); D62 Acute posthemorrhagic anemia; K58.9 Irritable bowel syndrome, unspecified; I10 Essential (primary) hypertension; E11.9 Type 2 diabetes mellitus without complications; E78.5 Hyperlipidemia, unspecified; F41.9 Anxiety disorder, unspecified; Z79.4 Long term (current) use of insulin; E66.9 Obesity, unspecified; Z68.31 Body mass index [BMI] 31.0-31.9, adult; Z79.899 Other long term (current) drug therapy
CPT/HCPCS: 36415; 36430; 70450; 71045; 74177; 78278; 80048; 80053; 81001; 83036; 83605; 83735; 85014; 85018; 85025; 85027; 85610; 85730; 86850; 86900; 86901; 86923; 87086; 87088; 87147; 96361; 96374; 96375; 96376; 99285; A9270; A9560; C9113; G0378; G0379; J1815; J2405; J7030; J7050; J7120; P9016; Q9967

== ENCOUNTER 2023-12-27 16:25 | Emergency (ER) | payer OTHER, SELFPAY ==
[2023-12-27] VITALS (18 sets, daily range): BP systolic 98–184; BP diastolic 66–146; PULSE 72–84; RESP 14–24; TEMP 36.8; O2SAT 98–100
--- NOTE | ~2023-12-27 | CT_ITS ---
EXAMINATION: CT abdomen pelvis w con DATE: 12/27/2023 20:31 INDICATION: pain, LLQ, hx diverticulosis and GIB TECHNIQUE: Computed tomography (CT) of the abdomen and pelvis was performed with 100 mL Omnipaque-350 intravenous contrast. Automated exposure control and iterative reconstruction technique were employe d. The dose-length product was 1265.78 mGy-cm. COMPARISON: 03/28/2020. FINDINGS: Lower thorax: Unremarkable Liver: Normal. Biliary/Gallbladder: Gallbladder is normal. No bile duct dilation. Pancreas: No mass or duct dilation. Spleen: Normal. Adrenals:No mass. Kidneys: No suspicious mass, obstructing stone, or hydronephrosis. Left lower pole scar. GI tract: No small or large bowel dilation. Surgically absent appendix. Inflamed diverticulum in the left lower quadrant projecting off the inferior descending colon with adjacent colonic wall thickenin g and mild pericolonic inflammatory change. Mesentery/Peritoneum: No ascites, mass, or free air. Retroperitoneum: No mass. Pelvis: Pelvic organs are within normal limits. Soft Tissues: Soft tissues and body wall unremarkable. Bones: No acute osseous finding. IMPRESSION: Acute uncomplicated lower descending colonic diverticulitis. Reviewed, dictated and finalized at location K.
--- NOTE | 2023-12-27 18:26 | ED.ABDPAIN ---
HPI - Abdominal Pain General Chief Complaint: Abdominal Pain <Josselin Rizo PA-C - Last Filed: 12/28/23 17:16> Stated Complaint: abd pain <Josselin Rizo PA-C - Last Filed: 12/28/23 17:16> Time Seen by Provider: 12/27/23 18:26 <Josselin Rizo PA-C - Last Filed: 12/28/23 17:16> Focused HPI: This is a 53 year old female that presents to the ER for left sided abdominal pain. Ongoing over the last couple of days. Reports nausea. Reports history of diverticulitis and that her pain feels similar. Denies fever, vomiting, diarrhea. GENERAL: Well-appearing, well-nourished, and in no acute distress. HEAD: Normocephalic, atraumatic. CHEST: Clear to auscultation. ?No respiratory distress. HEART: Regular rate and rhythm.? NEURO: ?Alert and oriented x3. Patient screened in triage and initial orders placed.? ?Additional care and disposition to be based upon?diagnostic testing and treatment. <Josselin Rizo PA-C - Last Filed: 12/28/23 17:16> History of Present Illness HPI narrative: 53-year-old female with a past medical history significant for hypertension, diabetes, diverticulosis with previous diverticulitis flares. She has a history of diverticular bleed in the remote past. She states she presents today with chief complaint of left lower quadrant abdominal pain that was gradually onset and worsening over last 2 days. She states this feels very similar to her previous diverticulitis episodes. No nausea, vomiting, diarrhea, constipation, dark tarry stools or bleeding in the rectum. No urinary complaints. She states she otherwise feels in her normal state of health without any fever, chills. Patient states she has had a colonoscopy in the past that showed diverticulosis without any masses or active bleeding. She has remote history of a lower GI bleed that was stabilized without any intervention but did require 2 units of blood transfusion. No recent injuries or insults or recent illnesses. No trauma. <Albert Oconnor MD - Last Filed: 12/28/23 01:56> Related Data Home Medications: Home Medications Medication Instructions Recorded Confirmed gabapentin 100 mg capsule 100 mg PO TID 03/28/20 07/14/23 lisinopril 40 mg tablet 40 mg PO DAILY 03/28/20 07/14/23 amlodipine 10 mg tablet 10 mg PO DAILY 07/14/23 07/14/23 buspirone 10 mg tablet 10 mg PO TID 07/14/23 07/14/23 carvedilol 25 mg tablet 25 mg PO Q12H 07/14/23 07/14/23 cranberry 500 mg capsule 500 mg PO DAILY 07/14/23 07/14/23 hydrochlorothiazide 50 mg tablet 50 mg PO DAILY 07/14/23 07/14/23 hydrocodone 5 mg-acetaminophen 325 1 tablet PO HS PRN 07/14/23 07/14/23 mg tablet insulin needles (disposable) 30 X 07/14/23 07/14/23 3/4 omega 3 plus BYMOUTH 07/14/23 07/14/23 ondansetron HCl 4 mg tablet 4 mg PO Q8H PRN 07/14/23 07/14/23 sertraline 100 mg tablet 100 mg PO DAILY 07/14/23 07/14/23 <Josselin Rizo PA-C - Last Filed: 12/28/23 17:16> Allergies/Adverse Reactions: Allergies Allergy/AdvReac Type Severity Reaction Status Date / Time insulin isophane (NPH) Allergy Swelling Verified 08/09/23 14:34 [From Novolin N NPH U-100 Insulin] metformin AdvReac Vomiting Verified 08/09/23 14:34 <Josselin Rizo PA-C - Last Filed: 12/28/23 17:16> Review of Systems Review of Systems: Negative unless otherwise reviewed above in the HPI <Albert Oconnor MD - Last Filed: 12/28/23 01:56> COUNT INCLUDES THE [facility] Past Medical History Medical History: Medical History Anxiety Diabetes mellitus type 2 in obese (Unknown) Hyperlipidemia Hypertension (Unknown) Obesity (BMI 30.0-34.9) (Unknown) Pancreatitis <Josselin Rizo PA-C - Last Filed: 12/28/23 17:16> Surgical History Surgical History: Surgical History History of appendectomy done in 2001 History of herniorrhaphy <MALA Samuel-
[2023-12-27 18:42] LABS: Basophils Absolute Auto 0.1 K/mm3 (0.0-0.1); Basophils Percent Auto 0.9 % (0.2-1.2); Eosinophils Absolute Auto 0.3 K/mm3 (0-0.3); Eosinophils Percent Auto 2.4 % (0-4.4); Hematocrit 35.9 % (37.0-47.0); Hemoglobin 11.7 g/dL (12.0-15.0); Immature Granulocyte Absolute 0.06 K/mm3 (0.00-0.031); Immature Granulocyte Percent A 0.4 % (0-0.5); Lymphocytes Absolute Auto 2.56 K/mm3 (0.9-3.2); Lymphocytes Percent Auto 18.9 % (18.3-44.2); Mean Corpuscular HGB Conc 32.6 g/dl (32-36); Mean Corpuscular Hemoglobin 27.7 pg (26-34); Mean Corpuscular Volume 85.1 fl (80-100); Mean Platelet Volume 10.8 fl (7.4-10.4); Monocytes Absolute Auto 1.1 K/mm3 (0.1-0.6); Monocytes Percent Auto 8.3 % (2.6-8.5); Neutrophils Absolute Auto 9.4 K/mm3 (1.3-6.7); Neutrophils Percent Auto 69.1 % (45.5-73.1); Platelet Count Result 321 k/mm3 (150-375); Red Blood Count 4.22 M/mm3 (4.2-5.4); Red Cell Distribution Width 12.7 % (11.5-14.5); White Blood Count 13.6 K/mm3 (4.5-10.0)
[2023-12-27 18:52] LABS: Alanine Aminotransferase 18 U/L (6-35); Albumin Level 4.3 g/dL (3.5-5.1); Alkaline Phosphatase 84 U/L (38-126); Anion Gap 10 mmol/L (4-12); Aspartate Amino Transferase 27 U/L (14-36); Bilirubin,Total 0.3 mg/dL (0.2-1.3); Blood Urea Nitrogen 54 mg/dL (7-17); Calcium 9.5 mg/dL (8.4-10.2); Carbon Dioxide 29 mmol/L (22-30); Chloride 99 mmol/L (98-107); Estimated CRCL calculation 35 ml/min; Estimated Glomerular Filt Rate 27; Glucose 111 mg/dL (65-110); Lipase 56 U/L (23-300); Potassium 3.9 mmol/L (3.4-5.0); Sodium 138 mmol/L (137-145)
[2023-12-27 19:43] LABS: BEDSIDEPREGUCG Negative
[2023-12-27 20:33] LABS: Appearance Urine Clear (Clear); Bacteria Urine None Seen /hpf; Bilirubin Urine Negative (Negative); Blood Urine Negative (Negative); Color Urine Yellow (Yellow); Glucose Urine UA Trace mg/dL (Negative); Hyaline Casts Urine Present /lpf; Ketones Urine Trace mg/dL (Negative); Leukocyte Esterase Ur Trace LEU/UL (Negative); Nitrate Urine Negative (Negative); Protein Urine 3+ mg/dL (Negative); RBC Urine 0-2 /hpf (0-2); Specific Grav Ur 1.019 (1.001-1.035); Squamous Epithelial Cell Urine None Seen /hpf (Few); Urobilinogen Urine 0.2 mg/dL (<2.0); WBC Urine 0-5 /hpf (0-3)
[2023-12-27] MEDS: LACTATED RINGERS 1,000 ML 999 ML IV CONT (20:34)
[2023-12-27 20:35] LABS: Add Urine Microscopic? YES
[2023-12-27 21:53] LABS: Prothrombin Time 13.8 Seconds (11.1-14.7)
[2023-12-27 21:54] LABS: Partial Thromboplastin Time 32.9 Seconds (22.3-36.8)
[2023-12-27] MEDS: AMOXICILLIN/CLAVULANATE K 875-125 MG TAB 1 TABLET PO (21:57)
== END 2023-12-27 22:09 | disposition home or self-care (01) ==
PROVIDERS: Physician Assistant; Emergency Provider Student in an Organized Health Care Education/Training Program; PCP Family Medicine
DX: K57.32 Diverticulitis of large intestine without perforation or abscess without bleeding (principal); N17.9 Acute kidney failure, unspecified; E11.9 Type 2 diabetes mellitus without complications; I10 Essential (primary) hypertension; E78.5 Hyperlipidemia, unspecified; E66.9 Obesity, unspecified; Z68.41 Body mass index [BMI] 40.0-44.9, adult; F41.9 Anxiety disorder, unspecified; Z79.899 Other long term (current) drug therapy; Z79.4 Long term (current) use of insulin
CPT/HCPCS: 36415; 74177; 80053; 81001; 81025; 83690; 85025; 85610; 85730; 86850; 86900; 86901; 96360; 99284; A9270; J7120; Q9967